=== PATIENT | female | born 1990 | race Caucasian/White ===

== ENCOUNTER 2018-05-28 18:35 | Inpatient (IN) ==
--- NOTE | 2018-05-28 19:42 | Emergency Department Note ---
Disposition Clinical Impression: Jaundice, Hyponatremia, Elevated INR DKA (diabetic ketoacidoses) Qualifiers: Diabetes mellitus type: other specified (including [place]) Diabetes mellitus complication detail: without coma Qualified Code(s): E13.10 - Other specified diabetes mellitus with ketoacidosis without coma Anemia Qualifiers: Anemia type: unspecified type Qualified Code(s): D64.9 - Anemia, unspecified Leukocytosis Qualifiers: Leukocytosis type: unspecified Qualified Code(s): D72.829 - Elevated white blood cell count, unspecified Abdominal pain Qualifiers: Abdominal location: generalized Qualified Code(s): R10.84 - Generalized abdominal pain Disposition: Admitted As Inpatient Condition: Serious Referrals: Michael Haque DO [Primary Care Provider] - General Adult HPI - General Chief complaint: ED General Medical Stated complaint: high glucose, needs transfusion Time Seen by Provider: 05/28/18 18:43 Source: patient Mode of arrival: EMS Limitations: no limitations Nursing Notes Reviewed: Yes Vital Signs Reviewed: Yes - History of Present Illness HPI Narrative: 27-year-old female history of alcoholic cirrhosis with fulminant hepatic failure who presents to the ER due to hyperglycemia and necessity for transfusion. The patient is a poor historian not really sure why she is here. States that she was supposed to receive blood today however they checked her glucose and it was high 2. No history of diabetes. She is unsure why she is anemic and needs blood. Reports abdominal pain which is normal for her. States she had a fever 100.4 although she is not sure when that happened. No other complaints. 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 Scale: 0 Improves with: nothing Worsens with: nothing Associated symptoms: Reports: other (Abdominal pain) Treatments Prior to Arrival: none - Related Data Home Medications Medication Instructions Recorded Confirmed ClonazePAM [Klonopin] 1 mg PO QID PRN 06/21/15 06/21/15 Oxcarbazepine [Trileptal] 300 mg PO DAILY 06/21/15 06/21/15 Quetiapine Fumarate [Seroquel] 25 - 50 mg PO HS PRN 06/21/15 06/21/15 Previous Rx's Medication Instructions Recorded Sodium Bicarbonate 650 mg PO TID PRN #30 tablet 06/23/15 Ondansetron HCl [Zofran] 4 mg PO Q6H PRN #30 tablet 11/21/15 OxyCODONE/APAP 5/325 [Percocet 1 each PO Q6HR PRN #10 tablet 11/21/15 5/325 MG] Sulfamethoxazole/Trimeth DS 1 each PO BID #14 tablet 04/22/16 [Bactrim DS] cephALEXin [Keflex] 500 mg PO QID #21 capsule 04/22/16 Allergies Allergy/AdvReac Type Severity Reaction Status Date / Time peanut Allergy Hives Verified 12/10/16 10:00 acetaminophen [From Tylenol] AdvReac See Verified 12/10/16 10:03 Comments All systems ED: reviewed and negative except as stated. Constitutional: Reports: fever Gastrointestinal: Reports: abdominal pain. Denies: nausea, vomiting, diarrhea Genitourinary: Denies: hematuria Past Medical History - Past Medical History Attestation: Yes The following information was validated with the patient. 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 - Social History Smoking Status: Current every day smoker Smokeless Tobacco Status: No Alcohol use: Reports: heavy, recent Drug use: Reports: IV Drug Use Physical Exam - General Limitations: no limitations General appearance: alert, in no apparent distress - Head Head exam: atraumatic, normocephalic, normal inspection - Eye Eye exam: Present: scleral icterus - ENT ENT exam: normal exam - Neck Neck exam: Present: normal inspection - Chest Chest inspection: Present: normal inspection, symmetric chest wall rise - Respiratory Respiratory exam: Present: normal lung sounds bilaterally - Cardiovascular Cardiovascular exam: Present: regular rate, normal rhythm, normal heart sounds - Abdominal Exam Abdominal exam: Present: soft, tenderness (Mild diffuse), distention. Absent: guarding, rigidity - Extremities Exam Extremities exam: Present: normal inspection, full ROM - Expanded Upper Extremity Exam Shoulder exam: Present: normal inspection, full ROM Arm exam: Present: normal inspection, full ROM Elbow exam: Present: normal inspection, full ROM Forearm/Wrist exam: Present: normal inspection, full ROM Hand exam: Present: normal inspection, full ROM - Expanded Lower Extremity Exam Hip/Pelvis exam: Present: normal inspection, full ROM Upper leg exam: Present: normal inspection, full ROM Knee exam: Present: normal inspection, full ROM Lower leg exam: Present: normal inspection, full ROM Ankle exam: Present: normal inspection, full ROM Foot/toe exam: Present: normal inspection, full ROM - Skin Skin exam: Present: other (Diffuse jaundice) Course Course Narrative: Patient seen and examined. Vital signs reviewed. Plan to check labs for evaluation of anemia as well as DKA. - Reevaluation(s) Reevaluation #1: Discussed results of labs with the patient. She is noted to be anemic at 7.5. She is also hyperglycemic with an anion gap of 17 with a bicarbonate of 17 as well. Plan to start an insulin drip and maintenance fluids at this time. We will also transfuse her 1 unit of red blood cells. I discussed at length with the patient about transfer versus admission. I offered that she be transferred back to [facility] where she was treated previously. I discussed with her that if she were admitted here that there is no coverage capable of intervening should she develop an acute hemorrhage including variceal bleeding given her alcohol abuse. She is DNR CC which I discussed with her at bedside. The patient would like to be admitted here at this time. I discussed palliative care with the patient and will place a consultation as well. Vital Signs Temperature 98.6 F 05/28/18 18:37 Pulse Rate 78 05/28/18 18:37 Respiratory Rate 16 05/28/18 18:37 Blood Pressure 101/57 05/28/18 18:37 O2 Sat by Pulse Oximetry 99 05/28/18 18:37 Temperature 98.6 F 05/28/18 18:37 Pulse Rate 74 05/28/18 21:44 Respiratory Rate 14 05/28/18 21:44 Blood Pressure 93/50 05/28/18 21:44 O2 Sat by Pulse Oximetry 98 05/28/18 21:44 Oxygen Delivery Oxygen Delivery Room Air Medical Decision Making - MDM Narrative Medical decision making narrative: 27-year-old female with fulminant liver failure secondary to alcoholic cirrhosis who presents due to hyperglycemia. This appears to be a new finding for her. Her glucose here is 647 OF her chemistry. She does have an anion gap as well as a bicarbonate of 17. The patient was given normal saline as well as maintenance at 1-1/2 times with 20 of potassium in conjunction with an insulin infusion. She is noted to be diffusely jaundiced here which is her baseline. She has reports of abdominal pain with fevers at her nursing facility recently raising s uspicion for potential spontaneous brachial peritonitis. Given her elevated INR and anemia we are withholding from performing a diagnostic tap and treating empirically with Zosyn and Flagyl. She is also noted be anemic at 7.5 without obvious source of bleeding. Patient ordered 1 unit of packed red blood cells for transfusion. I did offer the patient to be transferred to a tertiary care center given her complicated medical history versus treatment here. The patient elected to be admitted here understanding that she is comfort care. - Lab Data Lab results reviewed: Yes I reviewed the patient's lab results. Result diagrams: 05/28/18 20:40 05/28/18 19:46 Lab Results 05/28/18 05/28/18 05/28/18 Range/Units 19:36 19:36 19:46 WBC (4.3-11.1) K/mcL RBC (3.82-4.97) M/mcL Hgb (11.5-15.4) g/dL Hct (35.3-44.9) % MCV (83.0-100.0) fL MCH (28.0-33.3) pg MCHC (31.6-35.5) g/dL RDW Plt Count (140-400) K/mcL MPV (9.4-12.4) fL Immature Gran % (0-4) % Seg Neutrophils % % Lymphocytes % % Monocytes % % Eosinophils % % Basophils % % Neutrophils # (1.6-8.9) K/mcL Lymphocytes # (0.6-4.6) K/mcL Monocytes # (0.0-1.3) K/mcL Eosinophils # (0.0-0.6) K/mcL Basophils # (0.0-0.2) K/mcL Platelet Estimate (Normal) Polychromasia (Not Present) Hypochromasia (Not Present) Poikilocytosis (Not Present) Macrocytosis (Not Present) Tear Drop Cells (Not Present) Acanthocytes (Spur) (Not Present) PT (9.4-12.1) Seconds INR VBG pH (7.32-7.42) pH Units VBG pCO2 (41-51) mmHg VBG pO2 (25-50) mmHg VBG HCO3 (21-27) mEq/L Sodium 120 L* (136-145) mEq/L Potassium 4.4 (3.5-5.1) mEq/L Chloride 86 L (98-107) mEq/L Carbon Dioxide 17 L (23-29) mEq/L BUN 12 (6-20) mg/dL Creatinine 0.86 (0.60-1.20) mg/dL Est GFR ( Amer) > 60 (> 60) Est GFR (Non-Af Amer) > 60 (> 60) BUN/Creatinine Ratio 14 (6-26) Glucose 647 H* (70-105) mg/dL Calculated Osmolality 280 (280-300) Calcium 9.2 (8.6-10.3) mg/dL Ammonia (16-53) mcmol/L Urine Color Dark Yellow (Yellow) Urine Clarity Cloudy A (Clear) Urine pH 7.0 (5.0-8.0) pH Units Ur Specific [place] 1.023 (1.010-1.025) Urine Protein Trace (Neg-Trace) mg/dL Urine Glucose (UA) >=1000 H (Normal) mg/dL Urine Ketones Negative (Negative) mg/dL Urine Blood Large H (Negative) Urine Nitrite Negative (Negative) Urine Bilirubin Moderate H (Negative) Urine Urobilinogen Normal (Normal) mg/dL Ur Leukocyte Esterase Small H (Negative) Urine Microscopic RBC 50-100 H (0-3) per hpf Urine Microscopic WBC 30-50 H (0-3) per hpf Ur Squamous Epith Cells Many H (None-Few) per lpf Urine Bacteria Many H (None-Few) per hpf Hyaline Casts None Seen (None-Few) per lpf Urine Yeast Few H (None Seen) per hpf Ur Oval Fat Bodies Present A (Not Present) Ur Culture Indicated? NO. A (NO) Urine Test Negative (Negative) Specimen Rejected 05/28/18 05/28/18 05/28/18 Range/Units 19:46 19:46 19:46 WBC (4.3-11.1) K/mcL RBC (3.82-4.97) M/mcL Hgb (11.5-15.4) g/dL Hct (35.3-44.9) % MCV (83.0-100.0) fL MCH (28.0-33.3) pg MCHC (31.6-35.5) g/dL RDW Plt Count (140-400) K/mcL MPV (9.4-12.4) fL Immature Gran % (0-4) % Seg Neutrophils % % Lymphocytes % % Monocytes % % Eosinophils % % Basophils % % Neutrophils # (1.6-8.9) K/mcL Lymphocytes # (0.6-4.6) K/mcL Monocytes # (0.0-1.3) K/mcL Eosinophils # (0.0-0.6) K/mcL Basophils # (0.0-0.2) K/mcL Platelet Estimate (Normal) Polychromasia (Not Present) Hypochromasia (Not Present) Poikilocytosis (Not Present) Macrocytosis (Not Present) Tear Drop Cells (Not Present) Acanthocytes (Spur) (Not Present) PT 18.7 H (9.4-12.1) Seconds INR 1.7 VBG pH (7.32-7.42) pH Units VBG pCO2 (41-51) mmHg VBG pO2 (25-50) mmHg VBG HCO3 (21-27) mEq/L Sodium (136-145) mEq/L Potassium (3.5-5.1) mEq/L Chloride (98-107) mEq/L Carbon Dioxide (23-29) mEq/L BUN (6-20) mg/dL Creatinine (0.60-1.20) mg/dL Est GFR ( Amer) (> 60) Est GFR (Non-Af Amer) (> 60) BUN/Creatinine Ratio (6-26) Glucose (70-105) mg/dL Calculated Osmolality (280-300) Calcium (8.6-10.3) mg/dL Ammonia 56 H (16-53) mcmol/L Urine Color (Yellow) Urine Clarity (Clear) Urine pH (5.0-8.0) pH Units Ur Specific [place] (1.010-1.025) Urine Protein (Neg-Trace) mg/dL Urine Glucose (UA) (Normal) mg/dL Urine Ketones (Negative) mg/dL Urine Blood (Negative) Urine Nitrite (Negative) Urine Bilirubin (Negative) Urine Urobilinogen (Normal) mg/dL Ur Leukocyte Esterase (Negative) Urine Microscopic RBC (0-3) per hpf Urine Microscopic WBC (0-3) per hpf Ur Squamous Epith Cells (None-Few) per lpf Urine Bacteria (None-Few) per hpf Hyaline Casts (None-Few) per lpf Urine Yeast (None Seen) per hpf Ur Oval Fat Bodies (Not Present) Ur Culture Indicated? (NO) Urine Test (Negative) Specimen Rejected Clotted 05/28/18 05/28/18 Range/Units 20:02 20:40 WBC 16.8 H (4.3-11.1) K/mcL RBC 2.02 L (3.82-4.97) M/mcL Hgb 7.5 L (11.5-15.4) g/dL Hct 22.2 L (35.3-44.9) % MCV 109.9 H (83.0-100.0) fL MCH 37.1 H (28.0-33.3) pg MCHC 33.8 (31.6-35.5) g/dL RDW TNP Plt Count 104 L (140-400) K/mcL MPV 10.9 (9.4-12.4) fL Immature Gran % 2.6 (0-4) % Seg Neutrophils % 88.1 % Lymphocytes % 3.9 % Monocytes % 4.9 % Eosinophils % 0.3 % Basophils % 0.2 % Neutrophils # 14.8 H (1.6-8.9) K/mcL Lymphocytes # 0.7 (0.6-4.6) K/mcL Monocytes # 0.8 (0.0-1.3) K/mcL Eosinophils # 0.1 (0.0-0.6) K/mcL Basophils # 0.0 (0.0-0.2) K/mcL Platelet Estimate Decreased L (Normal) Polychromasia 1+ A (Not Present) Hypochromasia Present A (Not Present) Poikilocytosis 2+ A (Not Present) Macrocytosis Present A (Not Present) Tear Drop Cells 1+ A (Not Present) Acanthocytes (Spur) 2+ A (Not Present) PT (9.4-12.1) Seconds INR VBG pH 7.38 (7.32-7.42) pH Units VBG pCO2 32 L (41-51) mmHg VBG pO2 59 H (25-50) mmHg VBG HCO3 19 L (21-27) mEq/L Sodium (136-145) mEq/L Potassium (3.5-5.1) mEq/L Chloride (98-107) mEq/L Carbon Dioxide (23-29) mEq/L BUN (6-20) mg/dL Creatinine (0.60-1.20) mg/dL Est GFR ( Amer) (> 60) Est GFR (Non-Af Amer) (> 60) BUN/Creatinine Ratio (6-26) Glucose (70-105) mg/dL Calculated Osmolality (280-300) Calcium (8.6-10.3) mg/dL Ammonia (16-53) mcmol/L Urine Color (Yellow) Urine Clarity (Clear) Urine pH (5.0-8.0) pH Units Ur Specific [place] (1.010-1.025) Urine Protein (Neg-Trace) mg/dL Urine Glucose (UA) (Normal) mg/dL Urine Ketones (Negative) mg/dL Urine Blood (Negative) Urine Nitrite (Negative) Urine Bilirubin (Negative) Urine Urobilinogen (Normal) mg/dL Ur Leukocyte Esterase (Negative) Urine Microscopic RBC (0-3) per hpf Urine Microscopic WBC (0-3) per hpf Ur Squamous Epith Cells (None-Few) per lpf Urine Bacteria (None-Few) per hpf Hyaline Casts (None-Few) per lpf Urine Yeast (None Seen) per hpf Ur Oval Fat Bodies (Not Present) Ur Culture Indicated? (NO) Urine Test (Negative) Specimen Rejected - Radiology Data Radiology results reviewed: Yes I reviewed the patient's radiology results. Chest X-Ray 05/28/18 21:00 IMPRESSION: Increased lung markings at the bilateral parahilar regions, likely related to bronchitis versus mild pulmonary vascular congestion. D/ / Blayne Muñiz MD / Blayne Muñiz MD Interpreting Provider: Blayne Muñiz MD [facility] - S.B.A.[facility]. Situation: Demographics, MOA Background: Presenting Complaint, Relevant PMH, Meds, & Allergies Assessment: Course and respsone to treatment, Exam Concerns, Patient/Family Expectation, Pertinant Lab Results, Outstanding Labs Recommendation: Barrier(s) to disposition, Recommendation based on pending studies, treatments, or consults [facility].B.A.[facility]. Report Given to: Dr. Odalis Hamlin Repor Time: 22:12
[2018-05-28 19:46] LABS: Bilirubin,Urine Moderate (Negative); Blood,Urine Large (Negative); Clarity,Urine Cloudy (Clear); Color,Urine Dark Yellow (Yellow); Glucose,Urine (UA) >=1000 mg/dL (Normal); Ketones,Urine Negative (Negative); Leukocyte Esterase,Urine Small (Negative); Nitrite,Urine Negative (Negative); Protein,Urine Trace mg/dL (Neg-Trace); Specific Gravity,Urine 1.023 (1.010-1.025); Urobilinogen,Urine Normal (Normal)
[2018-05-28 19:48] LABS: Bacteria,Urine Many per hpf (None-Few); Hyaline Casts,Urine None Seen per lpf (None-Few); RBC,Urine 50-100 per hpf (0-3); Squamous Epithelial Cell,Urine Many per lpf (None-Few); WBC,Urine 30-50 per hpf (0-3)
[2018-05-28 20:02] LABS: Oval Fat Bodies,Urine Present (Not Present); Yeast,Urine Few per hpf (None Seen)
[2018-05-28 20:07] LABS: VBG HCO3 19 mEq/L (21-27); VBG PCO2 32 mmHg (41-51); VBG PH 7.38 pH Units (7.32-7.42); VBG PO2 59 mmHg (25-50)
[2018-05-28 20:15] LABS: INR 1.7; Prothrombin Time 18.7 Seconds (9.4-12.1)
[2018-05-28 20:43] LABS: BUN/Creatinine Ratio 14 (6-26); Blood Urea Nitrogen 12 mg/dL (6-20); Calcium 9.2 mg/dL (8.6-10.3); Carbon Dioxide 17 mEq/L (23-29); Chloride 86 mEq/L (98-107); Glucose 647 mg/dL (70-105); Osmolality,Calculated 280 (280-300); Potassium 4.4 mEq/L (3.5-5.1); Sodium 120 mEq/L (136-145); eGFR For Non-African Americans > 60 (> 60)
[2018-05-28 20:57] LABS: Basophils % 0.2 %; Eosinophils # 0.1 K/mcL (0.0-0.6); Eosinophils % 0.3 %; Hematocrit 22.2 % (35.3-44.9); Immature Granulocytes % 2.6 % (0-4); Lymphocytes # 0.7 K/mcL (0.6-4.6); Lymphocytes % 3.9 %; Mean Corpuscular HGB Conc 33.8 g/dL (31.6-35.5); Mean Corpuscular Hemoglobin 37.1 pg (28.0-33.3); Mean Corpuscular Volume 109.9 fL (83.0-100.0); Mean Platelet Volume 10.9 fL (9.4-12.4); Monocytes # 0.8 K/mcL (0.0-1.3); Monocytes % 4.9 %; Neutrophils # 14.8 K/mcL (1.6-8.9); Platelet Count 104 K/mcL (140-400); Red Blood Count 2.02 M/mcL (3.82-4.97); Segmented Neutrophils % 88.1 %
[2018-05-28 20:58] LABS: Hemoglobin 7.5 g/dL (11.5-15.4)
[2018-05-28] MEDS ORDERED: 0.9 % Sodium Chloride 1,000 ML IVC ONE (21:03)
[2018-05-28 21:24] LABS: Hypochromasia Present (Not Present); Macrocytosis Present (Not Present); Poikilocytosis 2+ (Not Present); Polychromasia 1+ (Not Present); Tear Drop Cells 1+ (Not Present)
[2018-05-28 21:25] LABS: Acanthocytes 2+ (Not Present)
[2018-05-28 21:27] LABS: Platelet Estimate Decreased (Normal)
[2018-05-28] MEDS ORDERED: *HR* Dextrose 50 % in Water (Syg) 50 ML SYRINGE IVP PRN ×2 (21:46→23:08)
[2018-05-28] MEDS ORDERED: MetroNIDAZOLE 500 MG/100 ML 500 MG/100 ML BAG IVPB ONE (21:48)
[2018-05-28] MEDS ORDERED: Piperacillin/Tazobactam 3.375 GM in 0.9 % Sodium Chloride Mini Bag 100 ML IVPB ONE (21:48)
[2018-05-28] MEDS ORDERED: 0.9 % Sodium Chloride w KCl 20 MEQ/1,000 ML MLS IVC SCH (22:00)
[2018-05-28] MEDS ORDERED: Insulin Human Regular 100 UNIT in 0.9 % Sodium Chloride 100 ML IVC SCH ×2 (22:00→23:15)
[2018-05-28 22:58] LABS: Alanine Aminotransferase 70 Units/L (7-52); Albumin 3.4 g/dL (3.5-5.7); Albumin/Globulin Ratio 0.7 (1.1-2.2); Alkaline Phosphatase 176 Units/L (34-104); Aspartate Amino Transferase 62 Units/L (13-39); Bilirubin,Direct 8.8 mg/dL (0.0-0.2); Bilirubin,Indirect 15.3 mg/dL (0.0-1.2); Bilirubin,Total 24.1 mg/dL (0.3-1.0); Globulin 5.2 g/dL (2.4-3.5); Lipase 24 Units/L (11-82); Total Protein 8.6 g/dL (6.4-8.9); Troponin I 0.03 ng/mL (< 0.04)
[2018-05-28] MEDS ORDERED: Insulin Regular, Human 100 UNIT/ML IV PRN (23:08)
[2018-05-28] MEDS ORDERED: D5% in 0.45% NACL 1,000 ML IVC PRN (23:08)
[2018-05-28] MEDS ORDERED: 0.45 % Sodium Chloride w/KCl 20 MEQ/1,000 ML MLS IVC PRN (23:15)
[2018-05-28] MEDS ORDERED: 0.9 % Sodium Chloride w KCl 20 MEQ/1,000 ML MLS IVC PRN (23:15)
[2018-05-28] MEDS ORDERED: 0.9 % Sodium Chloride 1,000 ML IVC PRN (23:15)
[2018-05-28] MEDS ORDERED: Naloxone 0.4 MG/ML INJ IVP PRN (23:57)
[2018-05-29] MEDS ORDERED: *HR* LORazepam 2 MG/ML VIAL IVP ONE ×2 (00:06→08:52)
--- NOTE | 2018-05-29 00:23 | Internal Med History&Physical ---
Date of Encounter: 05/29/18 Time of Encounter: 00:14 Internal Medicine - H&P: HPI Chief complaint: DKA Admitted From: Emergency Dept Plans for Post Hospital Care: Transfer [facility] History of present illness: Ms. Coronado is a 27 year old female with past medical history of chronic alcoholism with end-stage liver disease, cirrhosis, history of IV drug use, asthma, anxiety, chronic pancreatitis, PTSD, tobacco use disorder, RA. Of note, patient was recently in the emergency department on 04/30/18 for symptomatic anemia and found to have hemoglobin of 2.5. At that time, she was transferred to [facility] and had banding for her esophageal varices. She had been seen and evaluated by hepatology is and was told that she is not a candidate for transplant. After being discharged from [facility], she was sent to [facility] for rehabilitation. Patient states that her current plans are to return back home with her parents when she is in better health. She was but states that she has recently been . She has one child who is in the care of her parents currently. Patient arrives to the emergency department today with chief complaint of feeling sick and overall week. She was having trouble ambulating, her stomach has been increasingly distended, she reports productive cough with mucous, vomiting. She does report frequent loose stools due to the laxatives that she takes. She reported slight fevers of 100.4 but denies chills. She states that she has been an rehab in her last alcoholic drink was greater than one month ago. She states that she started drinking at the age of 10. Patient denies history of diabetes. In the emergency department, she was found to have blood glucose at 647 with sodium of 120. Her anionic gap was 17. Her corrected sodium was 129. She was also found to have elevated INR of 1.7, increased bilirubin, increased liver function tests. In the ED, she had received one bolus of fluids, Flagyl, Zosyn, and one unit of blood was ordered. Past Med Surg Social Fam HX - Past Medical History Medical history: asthma, hepatitis, other Additional medical history: DNR CC. rain catheter Psychiatric history: anxiety, bipolar, depression - Past Surgical History Surgical History: orthopedic, other, other Additional surgical history: HIP EFFUSION, LEEP - Social History Smoking Status: Current every day smoker Smokeless Tobacco Status: No Alcohol use: heavy, recent Drug use: IV Drug Use Internal Medicine - H&P: Meds ClonazePAM [Klonopin] 1 mg PO QID PRN 06/21/15 [History] Oxcarbazepine [Trileptal] 300 mg PO DAILY 06/21/15 [History] Quetiapine Fumarate [Seroquel] 25 - 50 mg PO HS PRN 06/21/15 [History] Sodium Bicarbonate 650 mg PO TID PRN #30 tablet 06/23/15 [Rx] Ondansetron HCl [Zofran] 4 mg PO Q6H PRN #30 tablet 11/21/15 [Rx] OxyCODONE/APAP 5/325 [Percocet 5/325 MG] 1 each PO Q6HR PRN #10 tablet 11/21/15 [Rx] Sulfamethoxazole/Trimeth DS [Bactrim DS] 1 each PO BID #14 tablet 04/22/16 [Rx] cephALEXin [Keflex] 500 mg PO QID #21 capsule 04/22/16 [Rx] Allergy/AdvReac Type Severity Reaction Status Date / Time peanut Allergy Hives Verified 12/10/16 10:00 acetaminophen [From Tylenol] AdvReac See Verified 12/10/16 10:03 Comments All Systems PM: A 10-system review of systems was performed and is negative for pertinent findings except as documented above in the HPI. - Constitutional Constitutional: as per HPI - EENT Eyes: as per HPI Ears: as per HPI Nose, mouth and throat: as per HPI - Breasts Breasts: as per HPI - Cardiovascular Cardiovascular ROS IM: as per HPI - Respiratory Respiratory: as per HPI - Gastrointestinal Gastrointestinal: as per HPI - Genitourinary Genitourinary: as per HPI Menstruation: as per HPI - Musculoskeletal Musculoskeletal ROS IM: as per HPI - Integumentary Integumentary IM: as per HPI - Neurological Neurological ROS: as per HPI - Psychiatric Psychiatric: as per HPI - Endocrine Endocrine IM: as per HPI - Hematologic/Lymphatic Hematologic/Lymphatic: as per HPI - Allergic/Immunologic Allergic/Immunologic: as per HPI - Constitutional Vitals: Temp Pulse Resp BP Pulse Ox 98.6 F 80 16 110/59 100 05/28/18 18:37 05/28/18 23:58 05/28/18 23:58 05/28/18 23:58 05/28/18 23:58 General appearance: Present: A&O X 3, no acute distress, underweight, answers questions appropriately Exam: overall ill appearing, severe jaundice with scleral icterus present. - Head Head exam: Present: atraumatic - Eye Eye exam: Present: EOMI, scleral icterus. Absent: nystagmus, periorbital swelling Pupils: Present: PERRL - ENT ENT exam: Present: mucous membranes dry - Respiratory Additional comments: fine rales heard at left lower lobe - Cardiovascular Cardiovascular exam: Present: RRR, +S1, +S2, systolic murmur (+3 systolic mumur heard best at the left upper sternal border) - GI/Abdominal Additional comments: abdomen soft, significantly distended. hypoactive bowel sounds present. - Extremities Exam Additional comments: no cyanosis. peripheral pulses +2. +2 bilateral lower extremity pedal edema present. - Neurological Exam Neurological exam: Present: alert, CN II-XII intact, oriented X3 - Psychiatric Psychiatric exam: Present: depressed - Skin Skin exam: Present: dry, intact Additional comments: severe jaundice Internal Med - H&P Results - Labs CBC & Chem 7: 05/28/18 20:40 05/29/18 00:35 Labs: Short CBC 05/28/18 Range/Units 20:40 WBC 16.8 H (4.3-11.1) K/mcL Hgb 7.5 L (11.5-15.4) g/dL Hct 22.2 L (35.3-44.9) % Plt Count 104 L (140-400) K/mcL Neutrophils # 14.8 H (1.6-8.9) K/mcL BMP 05/28/18 19:46 Sodium 120 L* Potassium 4.4 Chloride 86 L Carbon Dioxide 17 L BUN 12 Creatinine 0.86 Glucose 647 H* Calcium 9.2 Cardiac Enzymes 05/28/18 Range/Units 19:46 Troponin I 0.03 (< 0.04) ng/mL Liver Function 05/28/18 Range/Units 19:46 Total Bilirubin 24.1 H (0.3-1.0) mg/dL Direct Bilirubin 8.8 H (0.0-0.2) mg/dL AST 62 H (13-39) Units/L ALT 70 H (7-52) Units/L Alkaline Phosphatase 176 H (34-104) Units/L Albumin 3.4 L (3.5-5.7) g/dL Urine 05/28/18 Range/Units 19:36 Urine Color Dark Yellow (Yellow) Urine Clarity Cloudy A (Clear) Urine pH 7.0 (5.0-8.0) pH Units Ur Specific [place] 1.023 (1.010-1.025) Urine Protein Trace (Neg-Trace) mg/dL Urine Glucose (UA) >=1000 H (Normal) mg/dL - ABG Interpretation ABG results: 05/28/18 20:02 VBG pH 7.38 VBG pCO2 32 L VBG pO2 59 H VBG HCO3 19 L - Impressions ITS Impressions Chest X-Ray 05/28/18 21:00 IMPRESSION: Increased lung markings at the bilateral parahilar regions, likely related to bronchitis versus mild pulmonary vascular congestion. D/ / Blayne Muñiz MD / Blayne Muñiz MD Interpreting Provider: Blayne Muñiz MD - Assessment and plan (1) DKA (diabetic ketoacidoses) Current Visit: Yes Status: Acute Assessment and plan: No known prior history of diabetes. Set DKA with anionic gap of 17, sugars and 600s etiology likely secondary to failure of pancreatic islet cells with chronic history of alcohol abuse and chronic pancreatitis. Plan: NPO IV fluid bolus insulin drip per DKA protocol Qualifiers: Diabetes mellitus type: other specified (including BLANCA) Diabetes mellitus complication detail: without coma Qualified Code(s): E13.10 - Other specified diabetes mellitus with ketoacidosis without coma (2) Sepsis Current Visit: Yes Status: Acute Assessment and plan: reports fevers of 100.4 at [facility], WBC 16.8. No current source of infection found, possible sources include PNA vs. SBP Lactic acid 5.2-also could be falsely elevated in setting of hepatic failure. CXR showed increase nabor hilar opacities. Plan: B.C. x2, Urine culture pending vancomycin, zosyn day 1 to cover for PNA, possible SBP Qualifiers: Sepsis type: sepsis due to unspecified organism Qualified Code(s): A41.9 - Sepsis, unspecified organism (3) Hyponatremia Current Visit: Yes Status: Acute Assessment and plan: Sodium 120 likely multifactorial etiology in setting of poor oral intake, Pseudohyponatremia in setting of DKA. Corrected sodium is 129 continue to monitor (4) End stage liver disease Current Visit: Yes Status: Acute Assessment and plan: Cirrhosis, end-stage liver disease secondary to chronic alcohol use. Patient states that she has been drinking since the age of 10. She was evaluated by a transplant tool and die maker in [place] and was told that she is not a candidate for a liver transplant. She currently resides in [facility], where she was sent after her stay at [place]. Patient came from [facility] with paper stating that her code status is DNR CC. However, upon conversation with her she states that she wants all life- sustaining measures. Patient would likely benefit from extensive goals of care conversations with palliative care team regarding her end-of-life care. MELD score: 28 (based on corrected sodium): correlates with 19.6% estimated 3 month mortality. Child-bishop class C: correlates with life expectancy of 1-3 years. Plan: appreciate palliative care team recommendations (5) Elevated INR Current Visit: Yes Status: Acute Assessment and plan: INR elevated 1.7, likely secondary to end-stage liver disease. No active signs of bleeding currently. Continue to monitor (6) Anemia Current Visit: Yes Status: Acute Assessment and plan: Hemoglobin currently around baseline. Continue to monitor Qualifiers: Anemia type: unspecified type Qualified Code(s): D64.9 - Anemia, unspecified (7) Anxiety and depression Current Visit: No Status: Chronic Assessment and plan: Resumed home medications once verified (8) Polysubstance abuse Current Visit: No Status: Chronic Assessment and plan: History of IV drug use, alcohol abuse (9) Jaundice Current Visit: Yes Status: Acute Assessment and plan: secondary to cirrhosis and End stage liver disease (10) DVT prophylaxis Current Visit: No Status: Acute Assessment and plan: SQ Lovenox - Time Spent With Patient Total time spent is greater than 50% in coordination of care (as documented) at patient's floor/unit and/or counseling patient:
[2018-05-29] MEDS: 0.9 % Sodium Chloride 1,000 ML IVC SCH ×2 (00:41→07:42)
[2018-05-29] MEDS: OXYCODONE Oral CONC 10 MG/0.5 ML ORAL.SYG SL PRN ×3 (00:50→12:27)
[2018-05-29 00:52] LABS: VBG HCO3 19 mEq/L (21-27); VBG PCO2 34 mmHg (41-51); VBG PH 7.35 pH Units (7.32-7.42); VBG PO2 76 mmHg (25-50)
--- NOTE | 2018-05-29 00:53 | Event Note ---
Date of Encounter: 05/29/18 Time of Encounter: 00:49 Patient was seen and examined. I agree with the H&P as written by the resident physician. Briefly patient is 27-year-old with history of alcoholic end-stage cirrhosis, previous GI bleed requiring banding of esophageal varices at [place], PTSD, chronic pancreas, anxiety, history of IV drug abuse, asthma, who presented with complaints of feeling ill and generalized weakness. She has a productive cough and has been having abdominal pain and vomiting. She has loose stools but also is on laxatives. Reports a fever of 100.4 from her assisted. She has not had a drink for a month or so. In the ED she was noted to have glucose in the 600 with high anion gap. Sodium was 120. LFTs consistent with known end-stage liver disease. Also had leukocytosis 16.8. Hemoglobin was 7.5 and she was ordered 1 unit transfusion. Denies any active bleeding. Patient had a chest x-ray in the ED which showed increased lung markings at the bilateral perihilar regions. The patient was given Flagyl and Zosyn in the ED. The patient is a DNR CC apparently but she tells me that "her dad wanted her to be comfortable" and when I asked her what she wanted she stated that she wants everything done. She was alert and oriented during that time. Alert to self and place and was able to state the month and year but not exact date. She was offered transfer to [place] by the ED and has refused and wanted to be admitted here. GEN: NAD, jaundiced CVS: RRR. S1, S2, systolic murmur heard RESP: CTAB ABD: Distended with generalized tenderness but no rebound, +BS EXT: No edema. 2+ DP. No rashes NEURO: Nonfocal We have made the patient full code for now until she is seen by palliative to sort out her CODE STATUS and goals of care. We will treat the patient for DKA per protocol Labs every 4 hours Check A1c Patient possibly has HCAP vs SBP and we have placed on vancomycin and Zosyn which should cover both Ideally she should undergo diagnostic versus therapeutic paracentesis as she is very distended (May need to be given FFPs if that is to be done). This can be deferred until she is evaluated by palliative and DKA is resolved Patient has a murmur and we will order echocardiogram rule out endocarditis given her history. Lactic acid is elevated and unlikely to resolve given the degree of the liver failure. No signs of active bleeding but she was transfused a unit of PRBCs in the ED and will check a CBC in the morning
[2018-05-29 01:10] LABS: BUN/Creatinine Ratio 18 (6-26); Blood Urea Nitrogen 13 mg/dL (6-20); Carbon Dioxide 18 mEq/L (23-29); Chloride 94 mEq/L (98-107); Glucose 490 mg/dL (70-105); Osmolality,Calculated 282 (280-300); Potassium 3.5 mEq/L (3.5-5.1); Sodium 125 mEq/L (136-145); eGFR For Non-African Americans > 60 (> 60)
[2018-05-29] MEDS: Nicotine 21 MG PATCH.TD24 TD SCH ×2 (01:44→08:31)
[2018-05-29 02:33] LABS: Hematocrit 21.2 % (35.3-44.9); Hemoglobin 7.1 g/dL (11.5-15.4); Mean Corpuscular HGB Conc 33.5 g/dL (31.6-35.5); Mean Corpuscular Hemoglobin 36.8 pg (28.0-33.3); Mean Corpuscular Volume 109.8 fL (83.0-100.0); Mean Platelet Volume 10.6 fL (9.4-12.4); Red Blood Count 1.93 M/mcL (3.82-4.97)
[2018-05-29 02:33] LABS: VBG HCO3 19 mEq/L (21-27); VBG PCO2 34 mmHg (41-51); VBG PH 7.35 pH Units (7.32-7.42); VBG PO2 123 mmHg (25-50)
[2018-05-29 02:34] LABS: Platelet Count 91 K/mcL (140-400)
[2018-05-29] MEDS ORDERED: Potassium Phosphate 44 MEQ in 0.9 % Sodium Chloride 250 ML IVPB PRN (02:39)
[2018-05-29 02:51] LABS: BUN/Creatinine Ratio 18 (6-26); Blood Urea Nitrogen 12 mg/dL (6-20); Calcium 7.8 mg/dL (8.6-10.3); Carbon Dioxide 18 mEq/L (23-29); Chloride 98 mEq/L (98-107); Glucose 335 mg/dL (70-105); Osmolality,Calculated 277 (280-300); Potassium 3.8 mEq/L (3.5-5.1); Sodium 127 mEq/L (136-145); eGFR For Non-African Americans > 60 (> 60)
[2018-05-29 03:10] LABS: VBG Ionized Calcium 1.16 mmol/L (1.15-1.35)
[2018-05-29] MEDS ORDERED: 0.9 % Sodium Chloride 250 ML ONE (03:43)
[2018-05-29] MEDS ORDERED: *HR* Enoxaparin 40 MG/0.4 ML SYRINGE SQ SCH (06:00)
[2018-05-29] MEDS: D5% in 0.45% NACL w KCl 20 MEQ/1,000 ML MLS IVC PRN ×2 (06:30→10:46)
[2018-05-29 07:57] LABS: VBG HCO3 19 mEq/L (21-27); VBG PCO2 35 mmHg (41-51); VBG PH 7.34 pH Units (7.32-7.42); VBG PO2 152 mmHg (25-50)
[2018-05-29 08:05] LABS: BUN/Creatinine Ratio 22 (6-26); Blood Urea Nitrogen 10 mg/dL (6-20); Calcium 7.5 mg/dL (8.6-10.3); Carbon Dioxide 18 mEq/L (23-29); Chloride 105 mEq/L (98-107); Glucose 138 mg/dL (70-105); Osmolality,Calculated 271 (280-300); Potassium 4.2 mEq/L (3.5-5.1); Sodium 130 mEq/L (136-145); eGFR For Non-African Americans > 60 (> 60)
[2018-05-29 08:55] LABS: Estimated Average Glucose 146 mg/dl; Hemoglobin A1C 6.7 %
[2018-05-29] MEDS ORDERED: Piperacillin/Tazobactam 3.375 GM in 0.9 % Sodium Chloride Mini Bag 100 ML IVPB SCH (10:00)
--- NOTE | 2018-05-29 10:19 | Internal Med Progress Note ---
Hospitalist Progress Note - Encounter Date of Encounter: 05/29/18 Time of Encounter: 08:12 - Subjective Interval History: Patient seen and examined this morning. C/o abdominal pain. Sleeping. Easily arousable. No fever chills N/V/D. No bloody BM. Denies sob or chest pain. - Exam Vitals: Temp Pulse Resp BP Pulse Ox 98.4 F 86 16 106/62 99 05/29/18 07:00 05/29/18 09:15 05/29/18 07:00 05/29/18 07:00 05/29/18 07:00 Exam: General: In no acute distress. Conversant. generalized edema. Icteric skin and sclera Respiratory exam: Decreased air entry at base. no accessory muscle use, rales, rhonchi, wheezes Cardiovascular exam: RRR, +S1, +S2. no gallop, rubs. Ejection systolic murmur. GI/Abdominal exam: Generalized tenderness, Distended abdomen, Fluid thrill present, bowel sound present, no peritoneal signs. Extremities exam: full ROM, 1+ pedal edema, warm, pulses palpable in b/l lower extremities. no calf tenderness Neurological exam: CN II-XII intact, AO X3, no focal deficits. Somewhat drowsy. Skin exam: Icteric, spider angioma present - Summary of Assessment and Plan Summary of Assessment and Plan: DKA - No known prior history of diabetes. - possibly from pancreatitis. HbA1c of 6.7 - c/w insulin drip per DKA protocol. bicarb still low. Sepsis - Low grade 100.4 at intermediate, WBC 16.8. - Hasa abdominal pain . ? SBP - Lactic acid 5.2, possibly related to hepatic failure. - CXR with possible bronchitis - c/w Vancomycin and zosyn End stage liver disease - Cirrhosis, end-stage liver disease secondary to chronic alcohol use. Last drink about 1 month ago - Previously evaluated by a transplant inspector precision in [place] and was told that she is not a candidate for a liver transplant. - INR 1.7 with elevated bilirubin. MELD score of 28. High 3 month mortality. - [place] paper stating that her code status is DNR CC. However currently full code. Says want to talk to father about Life support measure - Palliative care consulted. Anemia - 7.5 on admission. - s/p 1 PRBC. Inappropriate response - Unknow when had EGD - GI consulted Anxiety and depression - Resumed home medications once verified DVT prophylaxis - dc Lovenox. EPCD - Time Spent with Patient Total time spent is greater than 50% in coordination of care (as documented) at patient's floor/unit and/or counseling patient: Internal Medicine: Result - Labs CBC & Chem 7: 05/29/18 02:19 05/29/18 07:15 Labs: Short CBC 05/28/18 05/29/18 Range/Units 20:40 02:19 WBC 16.8 H 16.3 H (4.3-11.1) K/mcL Hgb 7.5 L 7.1 L (11.5-15.4) g/dL Hct 22.2 L 21.2 L (35.3-44.9) % Plt Count 104 L 91 L (140-400) K/mcL Neutrophils # 14.8 H (1.6-8.9) K/mcL BMP 05/28/18 05/29/18 05/29/18 19:46 00:35 02:19 Sodium 120 L* 125 L 127 L Potassium 4.4 3.5 3.8 Chloride 86 L 94 L 98 Carbon Dioxide 17 L 18 L 18 L BUN 12 13 12 Creatinine 0.86 0.74 0.65 Glucose 647 H* 490 H 335 H Calcium 9.2 8.0 L 7.8 L 05/29/18 07:15 Sodium 130 L Potassium 4.2 Chloride 105 Carbon Dioxide 18 L BUN 10 Creatinine 0.46 L Glucose 138 H Calcium 7.5 L Cardiac Enzymes 05/28/18 Range/Units 19:46 Troponin I 0.03 (< 0.04) ng/mL Liver Function 05/28/18 Range/Units 19:46 Total Bilirubin 24.1 H (0.3-1.0) mg/dL Direct Bilirubin 8.8 H (0.0-0.2) mg/dL AST 62 H (13-39) Units/L ALT 70 H (7-52) Units/L Alkaline Phosphatase 176 H (34-104) Units/L Albumin 3.4 L (3.5-5.7) g/dL Urine 05/28/18 Range/Units 19:36 Urine Color Dark Yellow (Yellow) Urine Clarity Cloudy A (Clear) Urine pH 7.0 (5.0-8.0) pH Units Ur Specific [place] 1.023 (1.010-1.025) Urine Protein Trace (Neg-Trace) mg/dL Urine Glucose (UA) >=1000 H (Normal) mg/dL - ABG Interpretation ABG results: PT/INR, D-dimer PT 18.7 Seconds (9.4-12.1) H 05/28/18 19:46 - Impressions Impressions Chest X-Ray 05/28/18 21:00 IMPRESSION: Increased lung markings at the bilateral parahilar regions, likely related to bronchitis versus mild pulmonary vascular congestion. D/ / Blayne Muñiz MD / Blayne Muñiz MD Interpreting Provider: Blayne Muñiz MD Consult Discharge Plan - Plan Referrals: Ej Emmanuel DO [Resident] - 06/05/18 10:30 am
--- NOTE | 2018-05-29 10:55 | Palliative - Consult Note ---
<Jose,Emilia - Last Filed: 05/29/18 15:09> Date of Encounter: 05/29/18 Time of Encounter: 10:15 - Assessment and Plan (1) Goals of care, counseling/discussion Current Visit: Yes Status: Acute Assessment and plan: Had a discussion of goals of care with Ms. Coronado. During the discussion Dr. Jerome was present as well as her father. She noted she does not want any further treatment. She would like to continue pain control. We had a discussion with her about transferring to a tertiary facility given she has end stage liver failure and is anemic, not responding to blood transfusion. She refused transfer. She noted the last time she was at [place] she was not happy with her care and does not want the same care. We discussed transfer to [facility] and she also declined that stating that she would like to just be kept comfortable by getting her pain medication, rehabilitation and food. She seems to have poor insight about the severity of her prognosis. She referred to her father to make her decisions and he did not want her to suffer any longer. She also asked that her code status be changed from full code to DNR. Her father was in agreement. She has agreed to be transferred to [facility] for further treatment options. After several discussions she is finally understanding of her prognosis and wants to seek out other options that might be available to her. (2) DKA (diabetic ketoacidoses) Current Visit: Yes Status: Acute Assessment and plan: Glucose was 647 at presentation with anion gap of 17. Her most recent A1c this morning is 6.7. Currently on insulin drip to close the anion gap and treat hyperglycemia. Being managed by primary team. Qualifiers: Diabetes mellitus type: other specified (including BLANCA) Diabetes mellitus complication detail: without coma Qualified Code(s): E13.10 - Other specified diabetes mellitus with ketoacidosis without coma (3) End stage liver disease Current Visit: Yes Status: Acute Assessment and plan: Bilirubin is 24 and history of esophageal varices. Her current LFTs are consistent with end stage liver disease. She was admitted at [facility] in the past but was not a candidate for liver transplant because of chronic alcohol use. At this time she does not want any further interventions and would like to return to [place]. (4) Abdominal pain Current Visit: Yes Status: Acute Assessment and plan: Diffuse abdominal pain. History of end stage liver disease. Her abdomen is very distended. Unknown why she has severe pain, likely from chronic pain tolerance due to high dose of pain medications she received at her nursing facility. She underwent paracentesis by IR and there was no fluid that could be tapped. Started long acting oxycodone 30 mg Q12 and 5 mg PRN Q4HR short acting for break through pain. Qualifiers: Abdominal location: generalized Qualified Code(s): R10.84 - Generalized abdominal pain (5) Anemia Current Visit: Yes Status: Acute Assessment and plan: Presented with hemoglobin of 7.5, received 1 unit of blood and hemoglobin is 7.1 today. No source of active bleeding but does have history end stage liver disease. Qualifiers: Anemia type: unspecified type Qualified Code(s): D64.9 - Anemia, unspecified (6) Sepsis Current Visit: Yes Status: Acute Assessment and plan: Met sepsis criteria at presentation. Presented with leukocytosis and temperature of 100.4. Possible source could be pneumonia given she was vomiting prior to presentation and increased perihilar opacities vs. SBP due to severe abdominal pain and leukocytosis. No fluid collected during paracentesis. Currently on vancomycin and zosyn, being managed by primary team. Qualifiers: Sepsis type: sepsis due to unspecified organism Qualified Code(s): A41.9 - Sepsis, unspecified organism Palliative-CN HPI - Data of Consult Requesting Physician: Liu Jacobo MD Primary Care Provider: Michael Haque DO - Consult Narrative History of present illness: Ms. Coronado is a 27 year old female who was presented to the hospital from [facility] due to feeling ill and having episodes of nausea and vomiting. She has history of alcoholic end-stage cirrhosis, previous GI bleed requiring banding of esophageal varices in [place], chronic pancreatitis, IV drug abuse, asthma and anxiety. At presentation she complained of abdominal pain and generalized weakness. She also complained of loose bowel movements but noted she is on laxatives. In the ED her glucose was noted to be 647 with anion gap of 17. Her LFTs were consistent with end stage liver disease with total bilirubin of 24 and INR of 1.7. She was also noted to be anemic and received 1 unit of blood. Her WBC was 16.8. Her chest xray showed bilateral perihilar regions. She is currently on zosyn and vancomycin for sepsis. She is being treated for DKA. She was offered transfer to [facility] at presentation and she refused. This morning she is resting in bed and is very tired. She is asking for food as she is hungry. We returned to see her in the afternoon. She was nor alert. She was taking but only asking for food and pain medications. She had no other complaints. She denies any pain to her back. She denies nausea or emesis, fever, chills, shortness of breath of cardiac chest pain. CC: Liu Jacobo MD - Time Spent with Patient Time: Total time spent is greater than 50% in coordination of care (as documented) at patient's floor/unit and/or counseling patient: Past Med Surg Social Fam HX - Past Medical History Medical history: asthma, hepatitis, other Additional medical history: DNR CC. rain catheter Psychiatric history: anxiety, bipolar, depression - Past Surgical History Surgical History: orthopedic, other, other Additional surgical history: HIP EFFUSION, LEEP - Social History Smoking Status: Current every day smoker Smokeless Tobacco Status: No Alcohol use: heavy, recent Drug use: IV Drug Use Medications and Allergies Albuterol Sulfate [Albuterol Inhaler] 2 puff IH Q6HR PRN 05/29/18 [History] Amino Acids/Protein Hydrolys [Pro-Stat Awc Liquid Packet] 30 ml PO DAILY 05/29/18 [History] Budesonide/Formoterol 160/4.5 [Symbicort 160/4.5] 2 puff IH BIDR 05/29/18 [History] Citalopram Hydrobromide [Citalopram HBr] 10 mg PO DAILY 05/29/18 [History] Fluconazole [Diflucan] 150 mg PO DAILY 05/29/18 [History] Fluticasone Propionate [Flovent Hfa] 1 puff IH DAILY 05/29/18 [History] Folic Acid 1 mg PO DAILY 05/29/18 [History] Furosemide [Lasix] 20 mg PO DAILY 05/29/18 [History] Insulin Human Regular [HumuLIN R] 2 - 6 unit SQ WMHS 05/29/18 [History] LORazepam [Ativan] 0.5 mg PO Q4HR PRN 05/29/18 [History] Lactulose 20 gm PO BID PRN 05/29/18 [History] Nystatin [Nystatin Suspension] 500,000 units PO QID PRN 05/29/18 [History] Pantoprazole Sodium [Protonix] 40 mg PO BID 05/29/18 [History] Promethazine [Phenergan] 25 mg PO Q6HR PRN 05/29/18 [History] Spironolactone 50 mg PO DAILY 05/29/18 [History] Sulfamethoxazole/Trimeth DS [Bactrim DS] 1 tab PO BID 05/29/18 [History] predniSONE [Prednisone Intensol] 13.3 ml PO DAILY 05/29/18 [History] Allergy/AdvReac Type Severity Reaction Status Date / Time peanut Allergy Hives Verified 12/10/16 10:00 acetaminophen [From Tylenol] AdvReac See Verified 12/10/16 10:03 Comments - Constitutional Constitutional ROS PAL: no chills, no fever(s) - Cardiovascular Cardiovascular ROS: no chest pain, no chest pain at rest, no diaphoresis - Respiratory Respiratory: no cough, no dyspnea - Gastrointestinal Gastrointestinal: abdominal pain (diffuse), loose stools, no nausea, no vomiting - Genitourinary Palliative ROS female: no dysuria - Neurological Neurological ROS: no headache(s), no weakness Palliative Care-Exam - Constitutional Vitals: Temp Pulse Resp BP Pulse Ox 98.4 F 86 16 106/62 99 05/29/18 07:00 05/29/18 09:15 05/29/18 07:00 05/29/18 07:00 05/29/18 07:00 General appearance: Present: average body habitus - Head Head Exam: Present: atraumatic, normocephalic - Eye Eye exam: Present: EOMI, normal appearance, scleral icterus - ENT ENT exam: Present: mucous membranes moist - Neck Neck exam: Present: normal inspection - Respiratory Respiratory exam: Present: CTAB. Absent: rhonchi, wheezes - GI/Abdominal Exam GI/Abdominal exam: Present: distended, normal bowel sounds, tenderness (diffuse tenderness). Absent: firm, guarding - Extremities Exam Extremities exam: Present: pedal edema (+1 pitting edema). Absent: tenderness - Neurological Exam Neurological exam: Present: alert, oriented X3 - Skin Skin exam: Present: dry, intact Additional comments: jaundice Internal Medicine - CN: Reslt - Labs CBC & Chem 7: 05/29/18 11:27 05/29/18 11:27 Labs: Short CBC 05/28/18 05/29/18 Range/Units 20:40 02:19 WBC 16.8 H 16.3 H (4.3-11.1) K/mcL Hgb 7.5 L 7.1 L (11.5-15.4) g/dL Hct 22.2 L 21.2 L (35.3-44.9) % Plt Count 104 L 91 L (140-400) K/mcL Neutrophils # 14.8 H (1.6-8.9) K/mcL BMP 05/28/18 05/29/18 05/29/18 19:46 00:35 02:19 Sodium 120 L* 125 L 127 L Potassium 4.4 3.5 3.8 Chloride 86 L 94 L 98 Carbon Dioxide 17 L 18 L 18 L BUN 12 13 12 Creatinine 0.86 0.74 0.65 Glucose 647 H* 490 H 335 H Calcium 9.2 8.0 L 7.8 L 05/29/18 07:15 Sodium 130 L Potassium 4.2 Chloride 105 Carbon Dioxide 18 L BUN 10 Creatinine 0.46 L Glucose 138 H Calcium 7.5 L Cardiac Enzymes 05/28/18 Range/Units 19:46 Troponin I 0.03 (< 0.04) ng/mL Liver Function 05/28/18 Range/Units 19:46 Total Bilirubin 24.1 H (0.3-1.0) mg/dL Direct Bilirubin 8.8 H (0.0-0.2) mg/dL AST 62 H (13-39) Units/L ALT 70 H (7-52) Units/L Alkaline Phosphatase 176 H (34-104) Units/L Albumin 3.4 L (3.5-5.7) g/dL Urine 05/28/18 Range/Units 19:36 Urine Color Dark Yellow (Yellow) Urine Clarity Cloudy A (Clear) Urine pH 7.0 (5.0-8.0) pH Units Ur Specific [place] 1.023 (1.010-1.025) Urine Protein Trace (Neg-Trace) mg/dL Urine Glucose (UA) >=1000 H (Normal) mg/dL - ABG Interpretation ABG results: PT/INR, D-dimer PT 18.7 Seconds (9.4-12.1) H 05/28/18 19:46 - Impressions Impressions Chest X-Ray 05/28/18 21:00 IMPRESSION: Increased lung markings at the bilateral parahilar regions, likely related to bronchitis versus mild pulmonary vascular congestion. D/ / Blayne Muñiz MD / Blayne Muñiz MD Interpreting Provider: Blayne Muñiz MD Consult Discharge Plan - Plan Referrals: Ej Emmanuel DO [Resident] - (patient is going to [facility] no PCP appointment needed) Palliative Quality Palliative Quality: Screen for Code Status: Yes, Screen for Goals of Care: Yes, Screen for Pain: Yes, If Pain Regimen Started, Initiate Bowel Regimen: Yes, Screen for Nausea/Vomitting: Yes Code Status: 05/28/18 23:57 Resuscitation Status: Active [RES] Routine Comment: Resuscitation Status: DNR-Comfort Care 05/29/18 01:49 Resuscitation Status: Active [RES] Stat Comment: Resuscitation Status: Full Code <Leslee Jerome - Last Filed: 05/29/18 17:16> Date of Encounter: 05/29/18 Palliative-CN HPI - Data of Consult Requesting Physician: Liu Jacobo MD Primary Care Provider: Michael Haque DO - Consult Narrative History of present illness: Ms. Coronado is a 27 year old female CC: Liu Jacobo MD - Time Spent with Patient Time: Total time spent is greater than 50% in coordination of care (as documented) at patient's floor/unit and/or counseling patient: Palliative Care-Exam - Constitutional Vitals: Temp Pulse Resp BP Pulse Ox 98.5 F 97 18 103/62 100 05/29/18 15:33 05/29/18 15:33 05/29/18 15:33 05/29/18 15:33 05/29/18 15:33 Internal Medicine - CN: Reslt - Labs CBC & Chem 7: 05/29/18 11:27 05/29/18 11:27 Labs: Short CBC 05/28/18 05/29/18 05/29/18 Range/Units 20:40 02:19 11:27 WBC 16.8 H 16.3 H 16.7 H (4.3-11.1) K/mcL Hgb 7.5 L 7.1 L 7.9 L (11.5-15.4) g/dL Hct 22.2 L 21.2 L 22.7 L (35.3-44.9) % Plt Count 104 L 91 L 77 L (140-400) K/mcL Neutrophils # 14.8 H 12.8 H (1.6-8.9) K/mcL BMP 05/28/18 05/29/18 05/29/18 19:46 00:35 02:19 Sodium 120 L* 125 L 127 L Potassium 4.4 3.5 3.8 Chloride 86 L 94 L 98 Carbon Dioxide 17 L 18 L 18 L BUN 12 13 12 Creatinine 0.86 0.74 0.65 Glucose 647 H* 490 H 335 H Calcium 9.2 8.0 L 7.8 L 05/29/18 05/29/18 07:15 11:27 Sodium 130 L 131 L Potassium 4.2 4.1 Chloride 105 105 Carbon Dioxide 18 L 19 L BUN 10 9 Creatinine 0.46 L 0.49 L Glucose 138 H 131 H Calcium 7.5 L 7.7 L Cardiac Enzymes 05/28/18 Range/Units 19:46 Troponin I 0.03 (< 0.04) ng/mL Liver Function 05/28/18 Range/Units 19:46 Total Bilirubin 24.1 H (0.3-1.0) mg/dL Direct Bilirubin 8.8 H (0.0-0.2) mg/dL AST 62 H (13-39) Units/L ALT 70 H (7-52) Units/L Alkaline Phosphatase 176 H (34-104) Units/L Albumin 3.4 L (3.5-5.7) g/dL Urine 05/28/18 Range/Units 19:36 Urine Color Dark Yellow (Yellow) Urine Clarity Cloudy A (Clear) Urine pH 7.0 (5.0-8.0) pH Units Ur Specific [place] 1.023 (1.010-1.025) Urine Protein Trace (Neg-Trace) mg/dL Urine Glucose (UA) >=1000 H (Normal) mg/dL - ABG Interpretation ABG results: PT/INR, D-dimer PT 20.0 Seconds (9.4-12.1) H 05/29/18 11:27 - Impressions Impressions Chest X-Ray 05/28/18 21:00 IMPRESSION: Increased lung markings at the bilateral parahilar regions, likely related to bronchitis versus mild pulmonary vascular congestion. D/ / Blayne Muñiz MD / Blayne Muñiz MD Interpreting Provider: Blayne Muñiz MD Abdomen/Pelvis/Transvag US 05/29/18 10:49 IMPRESSION: No significant ascites identified to safely perform paracentesis D/ / Mikal Sarkar MD / Mikal Sarkar MD Interpreting Provider: Mikal Sarkar MD Abdomen/Pelvis CT 05/29/18 13:19 IMPRESSION: 1. Interval development of bilateral small pleural effusions, ascites and body wall edema. 2. The slight improvement in hepatomegaly. Hepatic steatosis on prior has resolved. Stable splenomegaly. 3. Absence of IV contrast limits evaluation of the solid organs. Pancreatic duct appears dilated representing a change from prior. Consider MRI MRCP for further evaluation. D/ / Mike James MD / Mike James MD Interpreting Provider: Mike James MD - Attending Attestation I performed a history and physical examination of the patient and discussed his management with the resident. I reviewed the residents note and agree with the documented findings and plan of care, except as follow: Multiple goals of care discussions with pt and family today. 10:30 palliative care met with pt, at the time, pt complaining of abdominal pain and feeling hungry, unable to engage in most conversation. Discussed with Dr. Wright about attempting diagnostic and therapeutic paracenthesis. Called pt's father to discuss GOC, code status and plan of care. Father decided to come to the hospital for further discussion with patient. 13:30 Palliative care team (myself and Dr. Garcia) met with pt, pt's father, and mother. Patient was sent to IR for paracenthesis, no fluid was found for drainage. Discussed current medical conditions, trajectory of illness, overall poor prognosis and goals of care. Patient demonstrated poor insight into her medical condition, consistently stating that she just wanted to be kept comfortable and given pain medication and food, refusing transfer to tertiary center and further work up. However, she was hopeful to recover strength, get better and return home. Discussed code status with father, he is understanding that CPR will not be indicated for pt and will likely result in prolonging suffering and dying process. He decided, with the pt's agreement for DNRCCA and DNI. 1500, Met again with pt and family, along with primary hospitalist Dr. Wright to define GOC. Expained the options of continuing aggressive care at a tertiary care center ([facility]) or returning to [place] on hospice. Pt and family decided they were not ready for hospice yet. Decision was made with all parties agreement for transfer to [facility]. Patient's parent would like pt to return to [facility] when stable or in the case she was dying, so they can see her. Emotional support provided. Pain management: Pt is on Oxycodone 10mg q1hr a the senior care, as well as Ativan q4hrs. Pt has been complaining of constant pain since admission and demanding the same frequency of pain medication. Discussed with pt, will start Oxycodone ER 30 mg q12hrs, with oxycodone 5 mg q4hrs prn for breakthrough pain. Pain medication needs to be better defined in the next few days. Palliative Quality Code Status: 05/28/18 23:57 Resuscitation Status: Active [RES] Routine Comment: Resuscitation Status: DNR-Comfort Care 05/29/18 01:49 Resuscitation Status: Active [RES] Stat Comment: Resuscitation Status: Full Code 05/29/18 16:04 CODE [Resuscitation Status: Active] [RES] Routine Comment: Resuscitation Status: [id number] Palliative Scale - Palliative Performance Scale How ambulatory is this patient?: Mainly sit / lie What is patient's level of activity and evidence of disease?: Unable to do any work, Extensive disease How much self-care assistance does patient require?: Considerable assistance required How much oral intake does the patient have?: Normal What is this patient's level of consciousness?: Full or confusion Palliative Performance Score: 50 %
--- NOTE | 2018-05-29 11:20 | Gastroenterology Consult Note ---
Date of Encounter: 05/29/18 Time of Encounter: 10:45 - Assessment and plan (1) End stage liver disease Current Visit: Yes Status: Acute Assessment and plan: 27 year old female with end-stage liver disease. She has been evaluated at [facility] and deemed not a candidate for liver transplant. Her DF is very high 54. She had Hgb 2.5 last month and had varices banding at [facility]. Hgb is 7.1 currently, no active bleeding. She has requested to be Full code. Discussed with Dr Lee and he advised transfer to [facility] as there will not be GI promotions officer this weekend and the pt is high risk for decompensation. Her overall prognosis is poor. - Time Spent With Patient Total time spent is greater than 50% in coordination of care (as documented) at patient's floor/unit and/or counseling patient: GI History of Present Illness - Data of Consult Patient: new to practice Consult date: 05/29/18 Requesting Physician: Liu Jacobo MD - Consult Narrative Reason for consult: alcoholic cirrhosis, end stage liver disease History of present illness: Ms. Coronado is a 27 year old female with past medical history of chronic al coholism with end-stage liver disease, cirrhosis, history of IV drug use, asthma, anxiety, chronic pancreatitis, PTSD, tobacco use disorder, RA, and is currently a resident of a assisted. She was seen in the emergency department on 04/30/18 for symptomatic anemia and found to have hemoglobin of 2.5, was transferred to [facility] and had banding for her esophageal varices. She was there and evaluated by hepatology. She was told that she is not a candidate for transplant. After being discharged from [facility], she was sent to [facility] for rehabilitation. She presented with chief complaint of feeling sick and overall week. She was having trouble ambulating, her stomach has been increasingly distended, she reports productive cough with mucous, vomiting. She does report frequent loose stools due to the laxatives that she takes. She reported slight fevers of 100.4 but denies chills. She states that she has been an rehab in her last alcoholic drink was greater than one month ago. She states that she started drinking at the age of 10. She denies history of diabetes, but was found to have blood glucose at 647 with sodium of 120. Her anionic gap was 17. Her corrected sodium was 129. She was also found to have elevated INR of 1.7, increased bilirubin, increased liver function tests. Hgb was 7.5 she was transfused one unit PRBCs and Hgb is 7.1 today. On exam she is very lethargic, jaundice, and abdomen is distended and very tender. 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 rain catheter Psychiatric history: anxiety, bipolar, depression - Past Surgical History Surgical History: orthopedic, other, other Additional surgical history: HIP EFFUSION, LEEP - Social History Smoking Status: Current every day smoker Smokeless Tobacco Status: No Alcohol use: heavy, recent Drug use: IV Drug Use ROS unobtainable: due to mental status - Constitutional Vitals: Temp Pulse Resp BP Pulse Ox 98.4 F 86 16 106/62 99 05/29/18 07:00 05/29/18 09:15 05/29/18 07:00 05/29/18 07:00 05/29/18 07:00 Exam: CONSTITUTIONAL:lethargic, shakes her head yes or no but does not open her eyes or make ey contact.HEAD:normocephalic.EYES:jaundice.NECK:no obvious swelling.HEART:regular rate and rhythm, loud murmur.LUNGS:bilateral poor air entry.ABDOMEN: distended, firm very tender, RECTAL EXAM:Deferred.E XTREMITIES:no clubbing, cyanosis, 2+ BLE edema.SKIN:jaundice noted.NEUROLOGIC:no obvious focal defect. Results - Labs CBC & Chem 7: 05/29/18 02:19 05/29/18 07:15 Labs: Last Result Calcium 7.5 mg/dL (8.6-10.3) L 05/29/18 07:15 Troponin I 0.03 ng/mL (< 0.04) 05/28/18 19:46 Entire Visit Hgb 7.1 g/dL (11.5-15.4) L 05/29/18 02:19 Hct 21.2 % (35.3-44.9) L 05/29/18 02:19 PT 18.7 Seconds (9.4-12.1) H 05/28/18 19:46 Total Bilirubin 24.1 mg/dL (0.3-1.0) H 05/28/18 19:46 AST 62 Units/L (13-39) H 05/28/18 19:46 ALT 70 Units/L (7-52) H 05/28/18 19:46 Ammonia 56 mcmol/L (16-53) H 05/28/18 19:46 Lipase 24 Units/L (11-82) 05/28/18 19:46 - ABG ABG results: PT/INR, D-dimer PT 18.7 Seconds (9.4-12.1) H 05/28/18 19:46 - Impressions Impressions Chest X-Ray 05/28/18 21:00 IMPRESSION: Increased lung markings at the bilateral parahilar regions, likely related to bronchitis versus mild pulmonary vascular congestion. D/ / Blayne Muñiz MD / Blayne Muñiz MD Interpreting Provider: Blayne Muñiz MD Consult Discharge Plan - Plan Referrals: Ej Emmanuel DO [Resident] - 06/05/18 10:30 am
[2018-05-29 11:44] LABS: Eosinophils % 2.3 %
[2018-05-29 11:46] LABS: Basophils % 0.1 %; Eosinophils # 0.4 K/mcL (0.0-0.6); Hematocrit 22.7 % (35.3-44.9); Hemoglobin 7.9 g/dL (11.5-15.4); Immature Granulocytes % 2.5 % (0-4); Immature Platelets 4.2 % (1.1-6.1); Lymphocytes # 2.1 K/mcL (0.6-4.6); Lymphocytes % 12.8 %; Mean Corpuscular HGB Conc 34.8 g/dL (31.6-35.5); Mean Corpuscular Hemoglobin 36.6 pg (28.0-33.3); Mean Corpuscular Volume 105.1 fL (83.0-100.0); Mean Platelet Volume 10.3 fL (9.4-12.4); Monocytes # 0.9 K/mcL (0.0-1.3); Monocytes % 5.6 %; Neutrophils # 12.8 K/mcL (1.6-8.9); Red Blood Count 2.16 M/mcL (3.82-4.97); Segmented Neutrophils % 76.7 %
[2018-05-29 11:49] LABS: VBG HCO3 18 mEq/L (21-27); VBG PCO2 37 mmHg (41-51); VBG PH 7.31 pH Units (7.32-7.42); VBG PO2 122 mmHg (25-50)
[2018-05-29 11:57] LABS: INR 1.8
[2018-05-29 12:12] LABS: Platelet Count 77 K/mcL (140-400)
[2018-05-29 12:13] LABS: Anisocytosis 1+ (Not Present); Platelet Estimate Slight Decrease (Normal)
[2018-05-29 12:15] LABS: Acanthocytes 1+ (Not Present)
[2018-05-29] MEDS ORDERED: Insulin DETEMIR 100 UNIT/ML X5UNITS SQ ONE (12:15)
[2018-05-29 12:17] LABS: BUN/Creatinine Ratio 18 (6-26); Blood Urea Nitrogen 9 mg/dL (6-20); Calcium 7.7 mg/dL (8.6-10.3); Carbon Dioxide 19 mEq/L (23-29); Chloride 105 mEq/L (98-107); Glucose 131 mg/dL (70-105); Osmolality,Calculated 272 (280-300); Potassium 4.1 mEq/L (3.5-5.1); Sodium 131 mEq/L (136-145); eGFR For Non-African Americans > 60 (> 60)
[2018-05-29] MEDS ORDERED: Albumin 25% 25gram/100mL 25 GM/100 ML IV.SOLN IVC SCH (14:00)
[2018-05-29] MEDS ORDERED: *HR* LORazepam Oral Conc 2 MG/ML PO PRN (15:42)
[2018-05-29] MEDS ORDERED: Pantoprazole 40 MG VIAL IVP ONE (16:19)
--- NOTE | 2018-05-29 16:21 | Discharge Summary ---
Orders not resulted at time of discharge: Pending orders 05/28/18 22:11 EKG [ECG 12 lead ECG] [ECG] Stat 05/29/18 00:40 Culture,Urine [RM] Routine 05/29/18 01:03 Culture,Blood [BC] Stat 05/29/18 02:12 EV echocardiogram Routine 05/29/18 10:28 Occult Blood,Stool [BF] Routine 05/29/18 13:10 Cell Cnt w Dif, Peritoneal Fl [BF] Stat Glucose,Peritoneal Fluid [BF] Stat LDH,Peritoneal Fluid [BF] Stat Total Protein,Peritoneal Fluid [BF] Stat 05/29/18 13:11 Hepatic Panel Stat 05/30/18 02:45 Basic Metabolic Panel DAILY 05/31/18 02:45 Basic Metabolic Panel DAILY Date of Encounter: 05/29/18 Time of Encounter: 16:15 - Discharge Diagnosis (1) Anemia Priority: Primary Status: Acute Qualifiers: Anemia type: unspecified type Qualified Code(s): D64.9 - Anemia, unspecified (2) DKA (diabetic ketoacidoses) Priority: Primary Status: Acute Qualifiers: Diabetes mellitus type: other specified (including BLANCA) Diabetes mellitus complication detail: without coma Qualified Code(s): E13.10 - Other specified diabetes mellitus with ketoacidosis without coma (3) Elevated INR Priority: Primary Status: Acute (4) End stage liver disease Priority: Secondary Status: Acute (5) Goals of care, counseling/discussion Priority: Secondary Status: Acute (6) Hyponatremia Priority: Primary Status: Acute (7) Jaundice Priority: Secondary Status: Acute (8) Sepsis Priority: Primary Status: Acute Qualifiers: Sepsis type: sepsis due to unspecified organism Qualified Code(s): A41.9 - Sepsis, unspecified organism (9) Lactic acidosis Priority: Primary Status: Acute (10) Anxiety and depression Priority: Secondary Status: Chronic Hospital course: Ms. Coronado is a 27 year old female with past medical history of chronic alcoholism with end-stage liver disease, history of IV drug use, asthma, anxiety who recently had esophageal variceal banding for CVA upper GI bleed with hemoglobin of 2.5 was recently discharged to [facility] from [facility] came in with complain of feeling sick and weak. Patient reported low- grade fevers chills with last drink about a month ago. Patient was found to have DKA is on initial labs in ER with anion gap of 17 and blood glucose of 600s. Patient was started on DKA protocol and admitted to stepdown unit. Patient initially refused the being transferred to [facility] when discussed in ER. Patient also complaining abdominal pain and given her tachycardia and low-grade fever and elevated lactic acid she was started on vancomycin and Zosyn for possible SBP versus pneumonia based on chest x-ray. Patient has end-stage liver disease with current meld score of 28 and DF score of 54. Patient was previously evaluated by executive marketing assistant in [place] and was told she was not a candidate for liver transplant. Currently patient hemoglobin is 7.1 from 7.5 after getting a unit of transfusion. Her current INR is 1.8 with direct bilirubin of 8.8. Patient currently on prednisone. Patient received 1 unit of FFP after attempts to obtain peritoneal fluid given abdominal distention which was unsuccessful given minimal amount of fluid on ultrasound as well as CT. Abdominal CAT scan was obtained to evaluate for abdominal distention which showed bilateral small pleural effusion, small ascites, body wall edema and possible pancreatic duct dilated. Palliative care was consulted for goals of care given patient was recently DNR CC when transferred from long term. Discussion were made with the father and mother for active treatment versus hospice given patient currently not able to comprehend completely. They chose to be transferred to tertiary care center for treatment for now. They are aware of terminal nature of her illness. Patient was also made [id number] DNI after discussion. Patient would be transferred to tertiary [facility] has patient has likelihood of having upper GI bleeding given her coagulopathy and her low hemoglobin. Arrangements were made to transfer given no GI coverage for endoscopy and banding on weekends and high likelihood of decompensation. Patient's anion gap has closed by the time of discharge and started on clear liquid diet in anticipation if needed endoscopy. Hemod ynamically stable on discharge. Discharge discussed with: patient, family, nurse, social work, case management, it support consultant - Time Spent with Patient Total time spent providing and/or coordinating discharge services: Greater than 30 minutes (55) - Discharge Medications Home Medications: Albuterol Sulfate [Albuterol Inhaler] 2 puff IH Q6HR PRN 05/29/18 [History] Amino Acids/Protein Hydrolys [Pro-Stat Awc Liquid Packet] 30 ml PO DAILY 05/29/18 [History] Budesonide/Formoterol 160/4.5 [Symbicort 160/4.5] 2 puff IH BIDR 05/29/18 [History] Citalopram Hydrobromide [Citalopram HBr] 10 mg PO DAILY 05/29/18 [History] Fluconazole [Diflucan] 150 mg PO DAILY 05/29/18 [History] Fluticasone Propionate [Flovent Hfa] 1 puff IH DAILY 05/29/18 [History] Folic Acid 1 mg PO DAILY 05/29/18 [History] Furosemide [Lasix] 20 mg PO DAILY 05/29/18 [History] Insulin Human Regular [HumuLIN R] 2 - 6 unit SQ WMHS 05/29/18 [History] LORazepam [Ativan] 0.5 mg PO Q4HR PRN 05/29/18 [History] Lactulose 20 gm PO BID PRN 05/29/18 [History] Nystatin [Nystatin Suspension] 500,000 units PO QID PRN 05/29/18 [History] Pantoprazole Sodium [Protonix] 40 mg PO BID 05/29/18 [History] Promethazine [Phenergan] 25 mg PO Q6HR PRN 05/29/18 [History] Spironolactone 50 mg PO DAILY 05/29/18 [History] Sulfamethoxazole/Trimeth DS [Bactrim Ds] 1 tab PO BID 05/29/18 [History] predniSONE [Prednisone Intensol] 13.3 ml PO DAILY 05/29/18 [History] Allergies/Adverse Reactions: Allergy/AdvReac Type Severity Reaction Status Date / Time peanut Allergy Hives Verified 12/10/16 10:00 acetaminophen [From Tylenol] AdvReac See Verified 12/10/16 10:03 Comments Date of admission: 05/28/18 23:57 Primary care physician: Michael Haque DO Consults: 05/28/18 21:51 Consult to Palliative Care [CONS] Stat Comment: Consulting Provider: Palliative Care Joselin Reason for Consult: end of life goals Call Completed: No - Constitutional Vitals: Temp Pulse Resp BP Pulse Ox 98.5 F 97 18 103/62 100 05/29/18 15:33 05/29/18 15:33 05/29/18 15:33 05/29/18 15:33 05/29/18 15:33 General appearance: Present: A&O X 3, no acute distress, underweight, answers questions appropriately Exam: General: In no acute distress. Conversant. generalized edema. Icteric skin and sclera Respiratory exam: Decreased air entry at base. no accessory muscle use, rales, rhonchi, wheezes Cardiovascular exam: RRR, +S1, +S2. no gallop, rubs. Ejection systolic murmur. GI/Abdominal exam: Generalized tenderness, Distended abdomen, Fluid thrill present, bowel sound present, no peritoneal signs. Extremities exam: full ROM, 1+ pedal edema, warm, pulses palpable in b/l lower extremities. no calf tenderness Neurological exam: CN II-XII intact, AO X2, no focal deficits. Somewhat drowsy. Skin exam: Icteric, spider angioma present - Patient Status Disposition: Transfer Hospital Swing Bed - Discharge Instructions Follow Up With: Ej Emmanuel DO [Resident] - (patient is going to [facility] no PCP appointment needed) Forms: ED Satisfaction Letter, Work/School Release
[2018-05-29 17:45] VITALS: BP 94/61
[2018-05-29] MEDS ORDERED: *HR* OxyCODONE ER (12 HR) 10 MG TABLET PO SCH (18:00)
== END 2018-05-29 18:10 | disposition other institution (70) | DRG 720 ==
LOC: EMEROOARM 18:35 → 2NNU 23:57
PROVIDERS: ADMIT Pediatrics; ATTEND Pediatrics

== ENCOUNTER 2019-02-20 10:55 | Inpatient (IN) ==
[2019-02-20] MEDS ORDERED: Pantoprazole 80 MG in 0.9 % Sodium Chloride 50 ML IVPB ONE (11:06)
[2019-02-20] MEDS ORDERED: Octreotide 50 MCG/ML INJ IVP ONE (11:06)
[2019-02-20] MEDS ORDERED: 0.9 % Sodium Chloride 1,000 ML IVC ONE ×2 (11:15→21:49)
[2019-02-20] MEDS ORDERED: Pantoprazole 40 MG in 0.9 % Sodium Chloride Mini Bag 100 ML IVC SCH (11:30)
[2019-02-20 12:21] LABS: Hemoglobin 8.2 g/dL (11.5-15.4); Mean Platelet Volume 10.8 fL (9.4-12.4)
[2019-02-20 12:23] LABS: Basophils % 0.5 %; Eosinophils # 0.1 K/mcL (0.0-0.6); Eosinophils % 1.7 %; Hematocrit 25.1 % (35.3-44.9); Immature Granulocytes % 1.7 % (0-4); Immature Platelets 3.9 % (1.1-6.1); Lymphocytes # 1.5 K/mcL (0.6-4.6); Lymphocytes % 23.2 %; Mean Corpuscular HGB Conc 32.7 g/dL (31.6-35.5); Mean Corpuscular Hemoglobin 35.3 pg (28.0-33.3); Mean Corpuscular Volume 108.2 fL (83.0-100.0); Monocytes # 0.6 K/mcL (0.0-1.3); Monocytes % 9.5 %; Red Blood Count 2.32 M/mcL (3.82-4.97); Segmented Neutrophils % 63.4 %; White Blood Count 6.3 K/mcL (4.3-11.1)
[2019-02-20 12:31] LABS: INR 1.6; Prothrombin Time 18.4 Seconds (9.4-12.1)
[2019-02-20 12:33] LABS: Platelet Count 49 K/mcL (140-400); Platelet Estimate Decreased (Normal)
[2019-02-20 12:34] LABS: Activated Partial Thrombo Time 37.2 Seconds (26.0-36.0)
[2019-02-20 12:39] LABS: Alanine Aminotransferase 48 Units/L (7-52); Albumin 3.5 g/dL (3.5-5.7); Alkaline Phosphatase 122 Units/L (34-104); BUN/Creatinine Ratio 24 (6-26); Bilirubin,Direct 1.8 mg/dL (0.0-0.2); Bilirubin,Indirect 2.2 mg/dL (0.0-1.2); Blood Urea Nitrogen 9 mg/dL (6-20); Calcium 8.1 mg/dL (8.6-10.3); Carbon Dioxide 23 mEq/L (23-29); Chloride 103 mEq/L (98-107); Ethanol 373 mg/dL (Less than 10); Globulin 3.6 g/dL (2.4-3.5); Glucose 151 mg/dL (70-105); Osmolality,Calculated 290 (280-300); Potassium 3.5 mEq/L (3.5-5.1); Sodium 139 mEq/L (136-145); Total Protein 7.1 g/dL (6.4-8.9); eGFR For African Americans > 60 (> 60); eGFR For Non-African Americans > 60 (> 60)
[2019-02-20 12:42] LABS: Aspartate Amino Transferase 164 Units/L (13-39)
[2019-02-20] MEDS: Octreotide 400 MCG in 0.9 % Sodium Chloride 100 ML IVC SCH (14:00)
[2019-02-20] MEDS ORDERED: cefTRIAXone 2,000 MG in Water for inj. (sterile) 20 ML IVP SCH (16:00)
[2019-02-20] MEDS ORDERED: *HR* FentaNYL (PF) 100 MCG/2 ML VIAL ONE (16:12)
[2019-02-20] MEDS ORDERED: Isovue-370 500 ML BOTTLE IVP ONE (16:40)
[2019-02-20 17:31] LABS: Basophils % 0.1 %; Eosinophils # 0.1 K/mcL (0.0-0.6); Eosinophils % 0.9 %; Hematocrit 16.6 % (35.3-44.9); Immature Granulocytes % 4.7 % (0-4); Lymphocytes # 2.6 K/mcL (0.6-4.6); Mean Corpuscular HGB Conc 31.3 g/dL (31.6-35.5); Mean Corpuscular Hemoglobin 36.1 pg (28.0-33.3); Mean Corpuscular Volume 115.3 fL (83.0-100.0); Mean Platelet Volume 10.6 fL (9.4-12.4); Monocytes # 0.8 K/mcL (0.0-1.3); Monocytes % 5.4 %; Red Blood Count 1.44 M/mcL (3.82-4.97); Red Cell Distribution Width 20.4 % (11.5-14.5); Segmented Neutrophils % 71.9 %; White Blood Count 15.3 K/mcL (4.3-11.1)
[2019-02-20 17:33] LABS: Platelet Count 69 K/mcL (140-400)
[2019-02-20 17:36] LABS: Hemoglobin 5.2 g/dL (11.5-15.4)
[2019-02-20 17:57] LABS: Anisocytosis 2+ (Not Present); Hypochromasia Present (Not Present); Large Platelets Present (Not Present); Macrocytosis Present (Not Present); Platelet Estimate Decreased (Normal); Poikilocytosis 1+ (Not Present); Toxic Granulation Present (Not Present)
[2019-02-20] MEDS ORDERED: Thiamine (B-1) 100 MG, Folic Acid 1 MG, MVI, adult with vitamin K 10 ML in 0.9 % Sodi... IVPB SCH (18:00)
[2019-02-20] MEDS ORDERED: 0.9 % Sodium Chloride 250 ML ONE (18:12)
[2019-02-20] MEDS: Ondansetron 4 MG/2 ML VIAL IVP PRN (18:13)
[2019-02-20] MEDS: *HR* LORazepam 2 MG/ML VIAL IVP PRN (18:13)
[2019-02-20] MEDS ORDERED: *HR* Promethazine 25 MG/ML VIAL ONE (20:11)
[2019-02-20] MEDS ORDERED: Dexmedetomidine HCl 400 MCG/100 ML MLS IVC ONE (20:11)
[2019-02-20] MEDS ORDERED: *HR* Metoprolol 5 MG/5 ML VIAL IVP ONE ×2 (20:11→20:21)
[2019-02-20] MEDS ORDERED: *HR* Promethazine 25 MG/ML VIAL IM PRN (20:15)
[2019-02-20] MEDS: *HR* Metoprolol 5 MG/5 ML VIAL IVP PRN ×2 (20:18→20:31)
[2019-02-20] MEDS: Dexmedetomidine HCl 400 MCG/100 ML MLS IVC SCH (20:30)
[2019-02-20 20:42] LABS: Bilirubin,Urine Negative (Negative); Blood,Urine Negative (Negative); Clarity,Urine Clear (Clear); Color,Urine Yellow (Yellow); Glucose,Urine (UA) Normal (Normal); Ketones,Urine 15 mg/dL (Negative); Leukocyte Esterase,Urine Negative (Negative); Nitrite,Urine Negative (Negative); PH,Urine 6.5 pH Units (5.0-8.0); Protein,Urine Negative (Neg-Trace); Specific Gravity,Urine > 1.030 (1.010-1.025); Urobilinogen,Urine Normal (Normal)
[2019-02-20] MEDS: Nicotine 21 MG PATCH.TD24 TD SCH (20:43)
[2019-02-20] MEDS ORDERED: *HR* Promethazine 25 MG/ML VIAL IV PRN (21:00)
[2019-02-20] MEDS: Pantoprazole 40 MG VIAL IVP SCH (22:10)
[2019-02-20] MEDS ORDERED: Norepinephrine 4 MG in D5% in Water 250 ML IVC SCH (22:30)
[2019-02-21 01:23] LABS: Basophils % 0.2 %; Hematocrit 20.5 % (35.3-44.9); Hemoglobin 6.5 g/dL (11.5-15.4); Immature Granulocytes % 0.9 % (0-4); Lymphocytes # 0.8 K/mcL (0.6-4.6); Lymphocytes % 17.2 %; Mean Corpuscular HGB Conc 31.7 g/dL (31.6-35.5); Mean Platelet Volume 10.9 fL (9.4-12.4); Monocytes # 0.3 K/mcL (0.0-1.3); Monocytes % 7.4 %; Neutrophils # 3.4 K/mcL (1.6-8.9); Red Blood Count 1.97 M/mcL (3.82-4.97); Red Cell Distribution Width 20.9 % (11.5-14.5); Segmented Neutrophils % 74.3 %
[2019-02-21 01:24] LABS: Mean Corpuscular Volume 104.1 fL (83.0-100.0); Platelet Count 31 K/mcL (140-400); White Blood Count 4.6 K/mcL (4.3-11.1)
[2019-02-21] MEDS: *HR* LORazepam 2 MG/ML VIAL IVP PRN ×3 (02:05→23:07)
[2019-02-21] MEDS: Octreotide 400 MCG in 0.9 % Sodium Chloride 100 ML IVC SCH ×2 (02:25→17:45)
[2019-02-21] MEDS: Dexmedetomidine HCl 400 MCG/100 ML MLS IVC SCH (03:36)
[2019-02-21] MEDS: Pantoprazole 40 MG VIAL IVP SCH ×2 (04:36→17:44)
[2019-02-21] MEDS ORDERED: 0.9 % Sodium Chloride 250 ML ONE ×2 (06:09→17:34)
[2019-02-21] MEDS: Nicotine 21 MG PATCH.TD24 TD SCH (07:46)
[2019-02-21 10:06] LABS: Basophils % 0.4 %; Eosinophils % 0.6 %; Hematocrit 24.8 % (35.3-44.9); Immature Granulocytes % 0.8 % (0-4); Lymphocytes # 1.1 K/mcL (0.6-4.6); Lymphocytes % 23.1 %; Mean Corpuscular HGB Conc 33.1 g/dL (31.6-35.5); Mean Corpuscular Hemoglobin 32.4 pg (28.0-33.3); Mean Platelet Volume 10.9 fL (9.4-12.4); Monocytes # 0.3 K/mcL (0.0-1.3); Monocytes % 6.4 %; Neutrophils # 3.2 K/mcL (1.6-8.9); Red Blood Count 2.53 M/mcL (3.82-4.97); Red Cell Distribution Width 18.9 % (11.5-14.5); Segmented Neutrophils % 68.7 %; White Blood Count 4.7 K/mcL (4.3-11.1)
[2019-02-21 10:14] LABS: INR 1.8; Prothrombin Time 20.3 Seconds (9.4-12.1)
[2019-02-21 10:17] LABS: Activated Partial Thrombo Time 34.4 Seconds (26.0-36.0)
[2019-02-21 10:18] LABS: Hemoglobin 8.2 g/dL (11.5-15.4); Platelet Count 34 K/mcL (140-400)
[2019-02-21 10:22] LABS: Platelet Estimate Marked Decrease (Normal)
[2019-02-21 10:49] LABS: Alanine Aminotransferase 98 Units/L (7-52); Albumin/Globulin Ratio 1.2 (1.1-2.2); Alkaline Phosphatase 92 Units/L (34-104); Aspartate Amino Transferase 536 Units/L (13-39); BUN/Creatinine Ratio 42 (6-26); Bilirubin,Total 5.6 mg/dL (0.3-1.0); Blood Urea Nitrogen 21 mg/dL (6-20); Calcium 7.2 mg/dL (8.6-10.3); Carbon Dioxide 25 mEq/L (23-29); Chloride 109 mEq/L (98-107); Globulin 2.6 g/dL (2.4-3.5); Glucose 188 mg/dL (70-105); Osmolality,Calculated 308 (280-300); Potassium 3.9 mEq/L (3.5-5.1); Sodium 145 mEq/L (136-145); Total Protein 5.6 g/dL (6.4-8.9); eGFR For African Americans > 60 (> 60); eGFR For Non-African Americans > 60 (> 60)
[2019-02-21] MEDS: Ondansetron 4 MG/2 ML VIAL IVP PRN ×3 (10:50→19:07)
[2019-02-21] MEDS ORDERED: *HR* Promethazine 25 MG/ML VIAL IV PRN (12:57)
[2019-02-21 15:15] LABS: Hematocrit 23.5 % (35.3-44.9)
[2019-02-21] MEDS: Thiamine (B-1) 100 MG, Folic Acid 1 MG, MVI, adult with vitamin K 10 ML in 0.9 % Sodi... IVPB SCH (17:44)
[2019-02-21] MEDS: cefTRIAXone 2,000 MG in Water for inj. (sterile) 20 ML IVP SCH (17:45)
[2019-02-22 03:53] LABS: Mean Corpuscular Hemoglobin 32.8 pg (28.0-33.3); Mean Platelet Volume 10.7 fL (9.4-12.4)
[2019-02-22 03:55] LABS: Basophils % 0.2 %; Eosinophils # 0.1 K/mcL (0.0-0.6); Eosinophils % 1.8 %; Hematocrit 24.2 % (35.3-44.9); Hemoglobin 8.1 g/dL (11.5-15.4); Immature Granulocytes % 4.1 % (0-4); Immature Platelets 5.3 % (1.1-6.1); Lymphocytes # 0.9 K/mcL (0.6-4.6); Lymphocytes % 19.6 %; Mean Corpuscular HGB Conc 33.5 g/dL (31.6-35.5); Monocytes # 0.3 K/mcL (0.0-1.3); Monocytes % 6.6 %; Red Blood Count 2.47 M/mcL (3.82-4.97); Segmented Neutrophils % 67.7 %; White Blood Count 4.4 K/mcL (4.3-11.1)
[2019-02-22 03:58] LABS: Platelet Count 40 K/mcL (140-400)
[2019-02-22 04:08] LABS: BUN/Creatinine Ratio 33 (6-26); Blood Urea Nitrogen 15 mg/dL (6-20); Calcium 7.9 mg/dL (8.6-10.3); Carbon Dioxide 25 mEq/L (23-29); Chloride 105 mEq/L (98-107); Glucose 140 mg/dL (70-105); Osmolality,Calculated 293 (280-300); Potassium 3.1 mEq/L (3.5-5.1); Sodium 140 mEq/L (136-145); eGFR For African Americans > 60 (> 60); eGFR For Non-African Americans > 60 (> 60)
[2019-02-22] MEDS: Pantoprazole 40 MG VIAL IVP SCH ×2 (05:46→16:57)
[2019-02-22] MEDS: Ondansetron 4 MG/2 ML VIAL IVP PRN ×2 (05:46→16:57)
[2019-02-22 06:11] LABS: Anisocytosis 1+ (Not Present); Hypochromasia Present (Not Present); Macrocytosis Present (Not Present); Polychromasia 1+ (Not Present); Tear Drop Cells 1+ (Not Present)
[2019-02-22 06:12] LABS: Platelet Estimate Decreased (Normal); Poikilocytosis 1+ (Not Present)
[2019-02-22] MEDS: Nicotine 21 MG PATCH.TD24 TD SCH (09:57)
[2019-02-22] MEDS: Octreotide 400 MCG in 0.9 % Sodium Chloride 100 ML IVC SCH (10:27)
[2019-02-22] MEDS: cefTRIAXone 2,000 MG in Water for inj. (sterile) 20 ML IVP SCH (16:57)
[2019-02-22] MEDS: Thiamine (B-1) 100 MG, Folic Acid 1 MG, MVI, adult with vitamin K 10 ML in 0.9 % Sodi... IVPB SCH (16:57)
[2019-02-22] MEDS ORDERED: *HR* FentaNYL (PF) 100 MCG/2 ML VIAL IVP ONE (18:12)
[2019-02-22] MEDS ORDERED: Potassium Chloride Elixir 20 MEQ/15 ML UDC PO ONE (18:18)
[2019-02-22] MEDS ORDERED: *HR* LORazepam 2 MG/ML VIAL IVP ONE (21:02)
[2019-02-22] MEDS: *HR* LORazepam 2 MG/ML VIAL IVP PRN (23:47)
[2019-02-23] MEDS: Octreotide 400 MCG in 0.9 % Sodium Chloride 100 ML IVC SCH ×2 (02:31→20:07)
[2019-02-23] MEDS ORDERED: *HR* OxyCODONE Immed Rel 5 MG TABLET PO ONE (02:44)
[2019-02-23] MEDS: Pantoprazole 40 MG VIAL IVP SCH ×2 (05:38→17:25)
[2019-02-23 06:00] LABS: Basophils % 0.5 %; Mean Corpuscular HGB Conc 33.9 g/dL (31.6-35.5); Mean Corpuscular Hemoglobin 32.9 pg (28.0-33.3); Mean Corpuscular Volume 97.2 fL (83.0-100.0); Red Cell Distribution Width 18.6 % (11.5-14.5)
[2019-02-23 06:02] LABS: Eosinophils # 0.1 K/mcL (0.0-0.6); Eosinophils % 1.7 %; Hematocrit 23.9 % (35.3-44.9); Hemoglobin 8.1 g/dL (11.5-15.4); Immature Platelets 2.5 % (1.1-6.1); Lymphocytes # 0.9 K/mcL (0.6-4.6); Lymphocytes % 22.7 %; Mean Platelet Volume 10.6 fL (9.4-12.4); Monocytes # 0.2 K/mcL (0.0-1.3); Monocytes % 5.7 %; Red Blood Count 2.46 M/mcL (3.82-4.97); Segmented Neutrophils % 67.4 %; White Blood Count 4.1 K/mcL (4.3-11.1)
[2019-02-23 06:11] LABS: Neutrophils # 2.8 K/mcL (1.6-8.9); Platelet Count 43 K/mcL (140-400)
[2019-02-23 06:25] LABS: Alanine Aminotransferase 69 Units/L (7-52); Albumin 3.2 g/dL (3.5-5.7); Albumin/Globulin Ratio 1.1 (1.1-2.2); Alkaline Phosphatase 100 Units/L (34-104); Aspartate Amino Transferase 202 Units/L (13-39); BUN/Creatinine Ratio 17 (6-26); Bilirubin,Total 4.4 mg/dL (0.3-1.0); Blood Urea Nitrogen 8 mg/dL (6-20); Calcium 8.2 mg/dL (8.6-10.3); Carbon Dioxide 26 mEq/L (23-29); Chloride 104 mEq/L (98-107); Globulin 2.9 g/dL (2.4-3.5); Glucose 110 mg/dL (70-105); Osmolality,Calculated 289 (280-300); Potassium 3.4 mEq/L (3.5-5.1); Sodium 140 mEq/L (136-145); Total Protein 6.1 g/dL (6.4-8.9); eGFR For African Americans > 60 (> 60); eGFR For Non-African Americans > 60 (> 60)
[2019-02-23] MEDS: Nicotine 21 MG PATCH.TD24 TD SCH (09:28)
[2019-02-23] MEDS ORDERED: *HR* FentaNYL (PF) 100 MCG/2 ML VIAL IVP ONE (09:42)
[2019-02-23] MEDS ORDERED: *HR* LORazepam 2 MG/ML VIAL IVP PRN ×3 (09:43)
[2019-02-23] MEDS: Potassium Chloride Elixir 20 MEQ/15 ML UDC PO SCH (10:26)
[2019-02-23] MEDS: *HR* OxyCODONE Immed Rel 5 MG TABLET PO PRN ×2 (15:13→23:00)
[2019-02-23] MEDS: cefTRIAXone 2,000 MG in Water for inj. (sterile) 20 ML IVP SCH (15:36)
[2019-02-24] MEDS: Pantoprazole 40 MG VIAL IVP SCH (06:13)
[2019-02-24] MEDS: *HR* OxyCODONE Immed Rel 5 MG TABLET PO PRN ×2 (06:13→12:33)
[2019-02-24 06:25] LABS: Basophils % 0.5 %; Hemoglobin 9.4 g/dL (11.5-15.4); Red Cell Distribution Width 18.5 % (11.5-14.5)
[2019-02-24 06:27] LABS: Eosinophils # 0.1 K/mcL (0.0-0.6); Eosinophils % 3.1 %; Hematocrit 27.7 % (35.3-44.9); Immature Granulocytes % 1.6 % (0-4); Immature Platelets 2.8 % (1.1-6.1); Lymphocytes % 26.2 %; Mean Corpuscular HGB Conc 33.9 g/dL (31.6-35.5); Mean Corpuscular Hemoglobin 32.6 pg (28.0-33.3); Mean Corpuscular Volume 96.2 fL (83.0-100.0); Mean Platelet Volume 9.1 fL (9.4-12.4); Monocytes # 0.3 K/mcL (0.0-1.3); Monocytes % 6.7 %; Neutrophils # 2.4 K/mcL (1.6-8.9); Red Blood Count 2.88 M/mcL (3.82-4.97); Segmented Neutrophils % 61.9 %; White Blood Count 3.9 K/mcL (4.3-11.1)
[2019-02-24 06:28] LABS: Platelet Count 48 K/mcL (140-400)
[2019-02-24] MEDS ORDERED: Cefdinir 300 MG CAPSULE PO SCH (09:51)
[2019-02-24] MEDS: Potassium Chloride Elixir 20 MEQ/15 ML UDC PO SCH (10:06)
[2019-02-24] MEDS: Nicotine 21 MG PATCH.TD24 TD SCH (10:06)
[2019-02-24 11:33] VITALS: BP 124/83
== END 2019-02-24 13:09 | disposition home or self-care (01) | DRG 280 ==
LOC: EMEROOARM 10:55 → SUATTDRO 14:40 → ICNU 14:40 → 2ANU 02-21 14:18
PROVIDERS: ADMIT Internal Medicine; ATTEND Internal Medicine

== ENCOUNTER 2019-03-26 13:44 | Observation (INO) ==
[2019-03-26] MEDS ORDERED: 0.9 % Sodium Chloride 4,000 ML ONE ×2 (13:51→14:48)
[2019-03-26] MEDS ORDERED: Pantoprazole 80 MG in 0.9 % Sodium Chloride 50 ML IVPB ONE (13:52)
[2019-03-26] MEDS ORDERED: cefTRIAXone 1,000 MG in Water for inj. (sterile) 10 ML IVP ONE (13:52)
[2019-03-26] MEDS ORDERED: 0.9 % Sodium Chloride 1,000 ML IVC ONE (13:52)
[2019-03-26] MEDS ORDERED: Octreotide 400 MCG in 0.9 % Sodium Chloride 100 ML IVC SCH (14:00)
[2019-03-26 14:12] LABS: Immature Granulocytes % 1.7 % (0-4)
[2019-03-26 14:14] LABS: Basophils # 0.1 K/mcL (0.0-0.2); Basophils % 0.9 %; Eosinophils # 0.1 K/mcL (0.0-0.6); Hematocrit 26.4 % (35.3-44.9); Hemoglobin 8.6 g/dL (11.5-15.4); Immature Platelets 4.2 % (1.1-6.1); Lymphocytes % 46.6 %; Mean Corpuscular HGB Conc 32.6 g/dL (31.6-35.5); Mean Corpuscular Volume 107.3 fL (83.0-100.0); Mean Platelet Volume 10.4 fL (9.4-12.4); Monocytes # 0.5 K/mcL (0.0-1.3); Monocytes % 7.7 %; Neutrophils # 2.6 K/mcL (1.6-8.9); Red Blood Count 2.46 M/mcL (3.82-4.97); Red Cell Distribution Width 21.1 % (11.5-14.5); Segmented Neutrophils % 41.1 %; White Blood Count 6.4 K/mcL (4.3-11.1)
--- NOTE | 2019-03-26 14:14 | Emergency Department Note ---
Disposition Clinical Impression: Alcoholism, Thrombocytopenia, History of esophageal varices, Hyperammonemia, End stage liver disease Esophageal varices Qualifiers: Esophageal varices type: unspecified type Esophageal varices bleeding: with bleeding Qualified Code(s): I85.01 - Esophageal varices with bleeding Disposition: Admitted As Inpatient Condition: Serious Time of Disposition: 14:57 GI Bleed HPI - General Chief complaint: ED GI Bleed Stated complaint: Vomiting Time Seen by Provider: 03/26/19 13:51 Source: patient, EMS Limitations: no limitations Nursing Notes Reviewed: Yes Vital Signs Reviewed: Yes - History of Present Illness HPI Narrative: Patient is a 28-year-old female presenting with active GI bleed. Patient with known history of end-stage cirrhosis, varices requiring banding in February 2019. Patient continues to be active alcoholic, last drink was today. Just prior to arrival, the patient began to have active hematemesis, she states that this is been going on for about a half hour at this point, she called EMS for further assistance. Patient otherwise states that she is in no chest pain, no abdominal pain, she does feel significantly weak throughout her entire body. She also s tates that yesterday, she was walking in her home, became slightly weak and fell onto her left wrist, she did not hit her head or have loss of consciousness. - Related Data Home Medications Medication Instructions Recorded Confirmed Buspirone HCl [Buspar] 10 mg PO BID 02/21/19 03/26/19 Duloxetine HCl [Cymbalta] 60 mg PO DAILY 02/21/19 03/26/19 Furosemide [Lasix] 40 mg PO BID 02/21/19 03/26/19 Lactulose [Enulose] 20 gm PO TID 02/21/19 03/26/19 Loratadine [Claritin] 10 mg PO DAILY 02/21/19 03/26/19 Midodrine HCl 2.5 mg PO TID 02/21/19 03/26/19 Potassium Chloride [K-Tab ER] 20 meq PO BID 02/21/19 03/26/19 hydrOXYzine HCl [Hydroxyzine HCl] 25 mg PO Q4H PRN 02/21/19 03/26/19 Previous Rx's Medication Instructions Recorded Nadolol 20 mg PO HS 30 Days #30 tablet 02/24/19 Allergies Allergy/AdvReac Type Severity Reaction Status Date / Time peanut Allergy Hives Verified 01/20/19 09:56 acetaminophen [From Tylenol] AdvReac See Verified 01/20/19 09:56 Comments All systems ED: reviewed and negative except as stated. Review of Systems: As Per HPI Constitutional: Denies: fever, chills ENT ED: Denies: congestion Cardiovascular: Denies: chest pain, palpitations Respiratory: Denies: cough, dyspnea Gastrointestinal: Reports: hematemesis. Denies: abdominal pain, nausea, melena, hematochezia Genitourinary: Denies: dysuria Integumentary: Denies: rash Neurological: Reports: weakness. 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: Reports: other - Social History Smoking Status: Current every day smoker Smokeless Tobacco Status: No Alcohol use: Reports: heavy Drug use: Reports: unknown, opiates Physical Exam - General Limitations: no limitations General appearance: appears intoxicated, lethargic - Head Head exam: normal inspection - Eye Eye exam: Present: PERRL, EOMI, scleral icterus - ENT ENT exam: mucous membranes dry (Active hematemesis at bedside) - Neck Neck exam: Present: normal inspection - Chest Chest inspection: Present: normal inspection, symmetric chest wall rise - Respiratory Respiratory exam: Present: normal lung sounds bilaterally. Absent: respiratory distress, wheezes - Cardiovascular Cardiovascular exam: Present: normal rhythm, tachycardia - Abdominal Exam Abdominal exam: Present: soft, Non-Tender, other (Patient with significant distention to the abdomen, with ascites). Absent: guarding, rebound - Extremities Exam Extremities exam: Present: normal capillary refill, pedal edema (2-3+ pitting edema to the lower extremities up to the knee) - Expanded Lower Extremity Exam Neurovascular/Tendon exam: Absent: pulse deficit, motor deficit, sensory deficit - Neurological Exam Neurological exam: Present: alert, oriented X3 - Psychiatric Psychiatric exam: Present: normal affect, anxious - Skin Skin exam: Present: warm, dry, other (Slightly jaundiced to the chest). Absent: pallor Course Vital Signs Temperature 98.2 F 03/26/19 13:48 Pulse Rate 153 03/26/19 13:48 Respiratory Rate 24 03/26/19 13:48 Blood Pressure 111/63 03/26/19 13:48 O2 Sat by Pulse Oximetry 91 03/26/19 13:48 Temperature 98.2 F 03/26/19 13:48 Pulse Rate 114 03/26/19 14:43 Respiratory Rate 24 03/26/19 13:48 Blood Pressure 121/86 03/26/19 14:43 O2 Sat by Pulse Oximetry 99 03/26/19 14:43 Oxygen Delivery Oxygen Delivery Nasal Cannula GI Bleed - [facility] Narrative Medical decision making narrative: Patient is a 28-year-old female who is presenting with active variceal bleed. Patient with known history of cirrhosis, end-stage, known history of variceal bleed in the past, most recently in February 2019 requiring banding. On arrival, patient is normotensive with tachycardia in the 150s to 160s, patient does not appear intoxicated and anxious. She is actively vomiting blood approximately 200 mL here in the ER. While here in the ER, patient has active hematemesis of approximately 1200 mL in total. While here in the ER, patient's blood pressure does not go below 110 systolic, she was given a total of 2 L normal saline via pressure bag on arrival, 3 total IVs were placed. Patient was given Protonix, octreotide bolus and octreotide drip, she was also given a gram of Rocephin. Given patient's active hematemesis, trauma blood was ordered. Patient was given approximately 4 total units of PRBCs, 2 units of plasma and 1 unit of platelets. Given patient's significant active bleed, with history of varices concern for active variceal bleed. I initially spoke with nurse practitionerJovita, who states that he will try to get a hold of Dr. Lee for definitive treatment. As I did not hear back from Dr. Lee within 20 minutes of paging, I spoke with Dr. Banda, Dr. Banda states that Dr. Lee is able to do banding for variceal bleed, he would need to provide the definitive treatment. Nurse practitioner Jovita was able to come down to the ER, we were able to get in touch with Dr. Lee, I spoke with directly with Dr. Lee who states that he will be here in 35 minutes, to prep the OR for emergent endoscopy for variceal bleed with banding. Jovita was here during the conversation, I did speak with the charge nurse and he will be notifying the surgical suite to get the OR ready for Dr. Lee to arrive. Dr. Lee states ETA of 35 minutes. Throughout this time, patient to maintain her airway, she remained alert and oriented 3, able to verbalize her understanding of the current condition, her blood pressure remained stable, her heart rate remained initially in the 150s, following the fluids as well as 3 units of PRBCs, patient's heart rate is now in the 110s. Blood work resulted which is hemoglobin 8.6, suspect this is falsely elevated given patient was given a liter of fluid, with continued active hematemesis. Further laboratory work reveals the patient to be thrombocytopenia with platelet of 58, T bili is slightly elevated. This was discussed with the on-call outside installer apprentice. Patient's family is at bedside, I have discussed with the patient as well as family the current treatment plan as well as severity of the disease and risk for continued bleeding. Patient agrees with transfusion of blood as well as states at this point in time she is a full code and once all available measures. ICU physician, Dr. Jean Baptiste is at bedside, states that he will see the patient once endoscopy has been performed. - Differential Diagnosis Likely: esophageal varices, gastritis, Benita-Fairchild syndrome, Upper gastr ointestinal hemorrhage, hematochezia, coagulopathy - Medical Records Medical records reviewed: Yes I reviewed the patient's medical records. - Lab Data Lab results reviewed: Yes I reviewed the patient's lab results. Result diagrams: 03/26/19 18:20 03/26/19 13:51 Lab Results 03/26/19 03/26/19 03/26/19 Range/Units 13:51 13:51 13:51 WBC 6.4 (4.3-11.1) K/mcL RBC 2.46 L (3.82-4.97) M/mcL Hgb 8.6 L (11.5-15.4) g/dL Hct 26.4 L (35.3-44.9) % MCV 107.3 H D (83.0-100.0) fL MCH 35.0 H (28.0-33.3) pg MCHC 32.6 (31.6-35.5) g/dL RDW 21.1 H (11.5-14.5) % Plt Count 58 L (140-400) K/mcL MPV 10.4 (9.4-12.4) fL Immature Gran % 1.7 (0-4) % Seg Neutrophils % 41.1 % Lymphocytes % 46.6 % Monocytes % 7.7 % Eosinophils % 2.0 % Basophils % 0.9 % Neutrophils # 2.6 (1.6-8.9) K/mcL Lymphocytes # 3.0 (0.6-4.6) K/mcL Monocytes # 0.5 (0.0-1.3) K/mcL Eosinophils # 0.1 (0.0-0.6) K/mcL Basophils # 0.1 (0.0-0.2) K/mcL Immature Plt Fraction 4.2 (1.1-6.1) % PT 17.9 H (9.4-12.1) Seconds INR 1.6 APTT 37.2 H (26.0-36.0) Seconds Sodium (136-145) mEq/L Potassium (3.5-5.1) mEq/L Chloride (98-107) mEq/L Carbon Dioxide (23-29) mEq/L BUN (6-20) mg/dL Creatinine (0.60-1.20) mg/dL Est GFR ( Amer) (> 60) Est GFR (Non-Af Amer) (> 60) BUN/Creatinine Ratio (6-26) Glucose (70-105) mg/dL Calculated Osmolality (280-300) Calcium (8.6-10.3) mg/dL Total Bilirubin (0.3-1.0) mg/dL AST (13-39) Units/L ALT (7-52) Units/L Alkaline Phosphatase (34-104) Units/L Ammonia (16-53) mcmol/L Serum Total Protein (6.4-8.9) g/dL Albumin (3.5-5.7) g/dL Globulin (2.4-3.5) g/dL Albumin/Globulin Ratio (1.1-2.2) Ethyl Alcohol (Less than 10) mg/dL Blood Type O NEGATIVE Antibody Screen NEGATIVE Crossmatch See Detail 03/26/19 03/26/19 Range/Units 13:51 13:51 WBC (4.3-11.1) K/mcL RBC (3.82-4.97) M/mcL Hgb (11.5-15.4) g/dL Hct (35.3-44.9) % MCV (83.0-100.0) fL MCH (28.0-33.3) pg MCHC (31.6-35.5) g/dL RDW (11.5-14.5) % Plt Count (140-400) K/mcL MPV (9.4-12.4) fL Immature Gran % (0-4) % Seg Neutrophils % % Lymphocytes % % Monocytes % % Eosinophils % % Basophils % % Neutrophils # (1.6-8.9) K/mcL Lymphocytes # (0.6-4.6) K/mcL Monocytes # (0.0-1.3) K/mcL Eosinophils # (0.0-0.6) K/mcL Basophils # (0.0-0.2) K/mcL Immature Plt Fraction (1.1-6.1) % PT (9.4-12.1) Seconds INR APTT (26.0-36.0) Seconds Sodium 138 (136-145) mEq/L Potassium 3.7 (3.5-5.1) mEq/L Chloride 102 (98-107) mEq/L Carbon Dioxide 27 (23-29) mEq/L BUN 10 (6-20) mg/dL Creatinine 0.31 L (0.60-1.20) mg/dL Est GFR ( Amer) > 60 (> 60) Est GFR (Non-Af Amer) > 60 (> 60) BUN/Creatinine Ratio 32 H (6-26) Glucose 154 H (70-105) mg/dL Calculated Osmolality 288 (280-300) Calcium 8.2 L (8.6-10.3) mg/dL Total Bilirubin 2.8 H (0.3-1.0) mg/dL AST 134 H (13-39) Units/L ALT 34 (7-52) Units/L Alkaline Phosphatase 111 H (34-104) Units/L Ammonia 135 H (16-53) mcmol/L Serum Total Protein 7.3 (6.4-8.9) g/dL Albumin 3.3 L (3.5-5.7) g/dL Globulin 4.0 H (2.4-3.5) g/dL Albumin/Globulin Ratio 0.8 L (1.1-2.2) Ethyl Alcohol 437 H (Less than 10) mg/dL Blood Type Antibody Screen Crossmatch - Radiology Data Radiology results reviewed: Yes I reviewed the patient's radiology results. Chest X-Ray 03/26/19 13:52 IMPRESSION: Minimal left basilar atelectasis or fibrosis. D/ / 03/26/2019 14:37:30 Julio Wilcox MD / [email or web address] Interpreting Provider: Julio Wilcox MD Attestation Statement - Attestation Attestation: I, Davonte Rose, examined this patient and my medical decision-making was reviewed with the VOCATIONAL HORTICULTURE INSTRUCTOR/PA/Advanced Practice Nurse/Resident Physician. I agree with the documented findings, disposition and treatment plan as described except to the extent set forth below. I reviewed the EKG with the resident and agree with the interpretation. 28-year-old female presents emergency Department with concerns of hematemesis. Patient has a history of end-stage liver disease and has extensive esophageal varices. She is required Merocel banding in the past. Patient has been seen by Dr. Campa in the past for her GI care. Patient is awake and alert however she does slur her speech and has eyes that are glazed. She answers her questions appropriately however. Patient vomited about 2-300 mL of bright red blood with EMS. She vomited another 400 mL of bright red blood in the emergency department during her stay. Patient was significantly tachycardic on initial evaluation. She is not hypotensive. She was started on trauma blood initially and then was also given fresh frozen plasma. We initially had difficulty obtaining emergent GI consult however after were able to speak with Dr. Lee, the patient was accepted to the GI service to go to the OR for additional variceal banding. Patient vital signs continued to improve with administration of fluids and blood products. She is transferred to the with tachycardia but otherwise stable vital signs. Patient was not in respiratory distress and was protecting her airway at the time of admission. Patient is intoxicated in the emergency department. Family and POA is present at bedside and who agrees with the plan of action.
[2019-03-26 14:23] LABS: Alanine Aminotransferase 34 Units/L (7-52); Albumin 3.3 g/dL (3.5-5.7); Albumin/Globulin Ratio 0.8 (1.1-2.2); Alkaline Phosphatase 111 Units/L (34-104); Aspartate Amino Transferase 134 Units/L (13-39); BUN/Creatinine Ratio 32 (6-26); Bilirubin,Total 2.8 mg/dL (0.3-1.0); Blood Urea Nitrogen 10 mg/dL (6-20); Calcium 8.2 mg/dL (8.6-10.3); Carbon Dioxide 27 mEq/L (23-29); Chloride 102 mEq/L (98-107); Ethanol 437 mg/dL (Less than 10); Glucose 154 mg/dL (70-105); Osmolality,Calculated 288 (280-300); Potassium 3.7 mEq/L (3.5-5.1); Sodium 138 mEq/L (136-145); Total Protein 7.3 g/dL (6.4-8.9); eGFR For African Americans > 60 (> 60); eGFR For Non-African Americans > 60 (> 60)
[2019-03-26 14:26] LABS: INR 1.6; Prothrombin Time 17.9 Seconds (9.4-12.1)
[2019-03-26 14:29] LABS: Activated Partial Thrombo Time 37.2 Seconds (26.0-36.0)
[2019-03-26 14:30] LABS: Platelet Count 58 K/mcL (140-400)
[2019-03-26] MEDS ORDERED: Pantoprazole 40 MG in 0.9 % Sodium Chloride Mini Bag 100 ML IVC SCH (14:30)
[2019-03-26] MEDS ORDERED: *HR* Succinylcholine 200 MG/10 ML VIAL IVP ONE (14:58)
[2019-03-26] MEDS ORDERED: Lidocaine -MPF 2% 2 ML VIAL ONE (14:58)
[2019-03-26] MEDS ORDERED: *HR* Midazolam HCl 2 MG/2 ML VIAL ONE (14:58)
[2019-03-26] MEDS ORDERED: *HR* FentaNYL (PF) 100 MCG/2 ML VIAL ONE (14:58)
[2019-03-26] MEDS ORDERED: *HR* Propofol 200 MG/20 ML VIAL IVP ONE (14:58)
--- NOTE | 2019-03-26 15:18 | Anesthesia Evaluation PreOp ---
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: Denies Any Significant HX Other Medical History: Hepatic (Cirrhosis) Anesthesia History: No Prior Anesthetic Complications : No Alcohol Use: heavy Drug use: unknown, opiates Medications and Allergies Buspirone HCl [Buspar] 10 mg PO BID 02/21/19 [History] Duloxetine HCl [Cymbalta] 60 mg PO DAILY 02/21/19 [History] Furosemide [Lasix] 40 mg PO BID 02/21/19 [History] Lactulose [Enulose] 20 gm PO TID 02/21/19 [History] Loratadine [Claritin] 10 mg PO DAILY 02/21/19 [History] Melatonin [Melatin] 6 mg PO HS 02/21/19 [History] Midodrine HCl 2.5 mg PO TID 02/21/19 [History] Omeprazole [PriLOSEC] 40 mg PO BID 02/21/19 [History] Ondansetron HCl [Zofran] 4 mg PO Q4H 02/21/19 [History] Potassium Chloride [K-Tab ER] 20 meq PO BID 02/21/19 [History] hydrOXYzine HCl [Hydroxyzine HCl] 25 mg PO Q4H 02/21/19 [History] Cefdinir [Omnicef] 300 mg PO BID #4 capsule 02/24/19 [Rx] Nadolol 20 mg PO HS 30 Days #30 tablet 02/24/19 [Rx] Allergy/AdvReac Type Severity Reaction Status Date / Time peanut Allergy Hives Verified 01/20/19 09:56 acetaminophen [From Tylenol] AdvReac See Verified 01/20/19 09:56 Comments - Meds/Allergy Pre-op Review Medications Reviewed: Yes Allergies Reviewed: Yes Beta Blockers on Current Med List: No Anesthesia Results - Labs 03/26/19 13:51 03/26/19 13:51 Anesthesia Exam Vital Signs/O2 Sat, Most Current Temp Pulse Resp BP Pulse Ox 98.2 F 114 24 121/86 99 03/26/19 13:48 03/26/19 14:43 03/26/19 13:48 03/26/19 14:43 03/26/19 14:43 Height: 5'1 Weight: 146 lbs NPO (# of Hours): MN Pain Scale: 0 - HEENT Pupil (Motor): Pupils equal, EOMI Oral Opening: Less than or equal to 3 - EXPORT FREIGHT MANAGER LOC: Confused EXPORT FREIGHT MANAGER Motor: Normal RUE, Normal LUE, Normal RLE, Normal LLE, Normal Face EXPORT FREIGHT MANAGER Sensory: Normal: RUE, LUE, RLE, LLE, Face - Cardiac Rhythm: Regular Murmur: None JVD: No Carotid Bruit: No - Pulmonary Breath Sounds: bilateral Clear Respiratory Effort: Symmetrical Anesthesia Assess/Plan ASA Score: 4, E Level of consciousness: Oriented Anesthetic Plan: General Autologous Blood: No Monitoring Plan: Standard Monitors Recovery Plan: PACU (Discussed GA, agrees to proceed) <Davonte Noyola - Last Filed: 03/26/19 15:23> Date of Encounter: 03/26/19 Anesthesia Results - Labs 03/26/19 13:51 03/26/19 13:51
--- NOTE | 2019-03-26 15:43 | Pulmonology Consult Note ---
<Pb Jimenez - Last Filed: 03/26/19 17:42> Date of Encounter: 03/26/19 Time of Encounter: 15:36 History of Present Illness Consult date: 03/26/19 Reason for consult: other (GI bleed) Chief complaint: Esophageal varices History of present illness: The patient is a 28-year-old female presenting to [facility] ED for active GI bleeding. 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 Banda. The patient has a long-standing history of alcohol abuse and states that her last drink was today. Her alcohol level here in the ED as above 400. Patient began having hematemesis just prior to arrival in the ED called 911 and was transported by EMS patient states that she is weak and dizzy but has no other concerns or complaints at this time. Patient states that she has experienced a recent fall due to her weakness onto her left wrist last night while walking home but states she did not strike her head or lose consciousness. She has no other trauma that she is reporting. The patient's blood pressure remained stable while she was in the ED, patient was noted to have vomited approximately 1 L of blood 3 peripheral IVs were placed and the patient was given Protonix, and octreotide bolus followed by a drip as well as a gram of Rocephin, trauma blood was ordered which the patient has received approximately 4 units of PRBCs to of plasma and 1 of platelets. Gastroenterology was contacted and Dr. Lee will take this patient to surgery for variceal banding. Upon my initial evaluation the emergency department the patient is awake, she is alert and oriented to her surroundings, she does appear to be slow to answering questions and with her movements likely due to inebriation, the patient states that she feels weak all over and lightheaded but has no other concerns or c omplaints at this time. She was actively vomiting blood upon my inspection with several hematemesis bags filled as well as blood on the sheets and blanket surrounding her. I was not able to perform a full physical exam prior to the patient being taken to surgery however it is noted that her abdomen does appear to be distended, her skin is pale she does not appear to be in any respiratory distress. Patient was taken emergently to the surgical suite where to esophageal variceal bands were placed without complication. Surgeon notes that in total there was approximately 1900 mL of blood between the ED in the surgical suite that the patient had vomited. He notes that the patient's stomach was also distended with blood which has not been removed. Patient will receive 8 units of PRBCs in total as well as the plasma and platelets which have been transfused prior. As there is no interventional radiology or gastroenterology weekend backup at this facility the patient will require transfer to tertiary care center for definitive care. Assessment and plan: Bleeding esophageal varices: Massive transfusion protocol was initiated with patient receiving 4 units packed red blood cells, 2 of plasma, one of platelets Patient taken emergently to operating room for variceal banding procedure. Patient on octreotide and Protonix drip after boluses. Received 1 g of ceftriaxone prior to surgery. When necessary Zofran for nausea Continue IV fluids transfusions as necessary Right femoral vein 3 lm central line placed Patient will be transferred to the care of her [facility] for further evaluation and management. Alcoholic liver cirrhosis: See above Mechanical ventilation: Continue mechanical ventilation for airway protection in the setting of variceal bleed. Past Med Surg Social Fam HX - Past Medical History Medical history: non-contributory, asthma, cirrhosis, hepatitis, other Additional medical history: crohns disease, Psychiatric history: depression - Past Surgical History Surgical History: orthopedic, other Additional surgical history: HIP EFFUSION, LEEP - Social History Smoking Status: Current every day smoker Smokeless Tobacco Status: No Alcohol use: heavy Drug use: unknown, opiates - Family History Mother Living Status: Still Living Hx Family GI Disorders: No Father Living Status: Still Living Hx Family GI Disorders: No Medications and Allergies Buspirone HCl [Buspar] 10 mg PO BID 02/21/19 [History] Duloxetine HCl [Cymbalta] 60 mg PO DAILY 02/21/19 [History] Furosemide [Lasix] 40 mg PO BID 02/21/19 [History] Lactulose [Enulose] 20 gm PO TID 02/21/19 [History] Loratadine [Claritin] 10 mg PO DAILY 02/21/19 [History] Midodrine HCl 2.5 mg PO TID 02/21/19 [History] Potassium Chloride [K-Tab ER] 20 meq PO BID 02/21/19 [History] hydrOXYzine HCl [Hydroxyzine HCl] 25 mg PO Q4H PRN 02/21/19 [History] Nadolol 20 mg PO HS 30 Days #30 tablet 02/24/19 [Rx] Allergy/AdvReac Type Severity Reaction Status Date / Time peanut Allergy Hives Verified 01/20/19 09:56 acetaminophen [From Tylenol] AdvReac See Verified 01/20/19 09:56 Comments ROS unobtainable: due to endotracheal tube All Systems: The remainder of the systems were reviewed and are negative Physical Examination Vital Signs: Vital Signs, Last 4 Hours Temp Pulse Resp BP Pulse Ox 03/26/19 15:25 113 118/72 100 03/26/19 15:10 123/62 03/26/19 15:00 126/92 03/26/19 14:43 114 121/86 99 03/26/19 14:30 123 117/76 97 03/26/19 14:25 123 110/63 97 03/26/19 14:20 117 153/98 98 03/26/19 14:14 99 03/26/19 13:48 98.2 F 153 24 111/63 91 General appearance: alert, appears uncomfortable Eyes: nonicteric ENT: oropharynx moist Effort: mildly labored Cardiovascular: regular rate and rhythm Gastrointestinal: normoactive bowel sounds, tender, other (Distended) Integumentary: other (Pale) Extremities: no cyanosis, no edema non-focal exam Results - Laboratory Findings CBC and BMP: 03/26/19 13:51 03/26/19 13:51 PT/INR, D-dimer PT 17.9 Seconds (9.4-12.1) H 03/26/19 13:51 Abnormal lab findings: Abnormal lab results RBC 2.46 M/mcL (3.82-4.97) L 03/26/19 13:51 Hgb 8.6 g/dL (11.5-15.4) L 03/26/19 13:51 Hct 26.4 % (35.3-44.9) L 03/26/19 13:51 MCV 107.3 fL (83.0-100.0) H D 03/26/19 13:51 MCH 35.0 pg (28.0-33.3) H 03/26/19 13:51 RDW 21.1 % (11.5-14.5) H 03/26/19 13:51 Plt Count 58 K/mcL (140-400) L 03/26/19 13:51 PT 17.9 Seconds (9.4-12.1) H 03/26/19 13:51 APTT 37.2 Seconds (26.0-36.0) H 03/26/19 13:51 Creatinine 0.31 mg/dL (0.60-1.20) L 03/26/19 13:51 BUN/Creatinine Ratio 32 (6-26) H 03/26/19 13:51 Glucose 154 mg/dL (70-105) H 03/26/19 13:51 Calcium 8.2 mg/dL (8.6-10.3) L 03/26/19 13:51 Total Bilirubin 2.8 mg/dL (0.3-1.0) H 03/26/19 13:51 AST 134 Units/L (13-39) H 03/26/19 13:51 Alkaline Phosphatase 111 Units/L (34-104) H 03/26/19 13:51 Ammonia 135 mcmol/L (16-53) H 03/26/19 13:51 Albumin 3.3 g/dL (3.5-5.7) L 03/26/19 13:51 Globulin 4.0 g/dL (2.4-3.5) H 03/26/19 13:51 Albumin/Globulin Ratio 0.8 (1.1-2.2) L 03/26/19 13:51 Ethyl Alcohol 437 mg/dL (Less than 10) H 03/26/19 13:51 Crossmatch See Detail 03/26/19 13:51 - Clinical Findings Intake & Output: Intake & Output 03/25/19 03/26/19 03/26/19 23:59 07:59 15:59 Intake Total 2610 / 2610 Balance 2610 / 2610 Weight 66.315 kg Pulmonary Procedures - Arterial Line Consent obtained: verbal consent (Consent received from patient's parents by attending physician) Time out performed: Yes Size (Gauge): 20 Technique used: guide wire technique Post-Procedure: line sutured into place, line taped into place, dry sterile dressing placed Patient tolerated procedure: well, no complications Complications: none Site: right, femoral Additional comments: Sterile technique was observed at all times. The right femoral vein was located by ultrasound clearly determining proper placement and identifying femoral artery location. Site was cleaned with chlorhexidine in the appropriate manner. Site was anesthetized with 1% lidocaine. procedure performed without difficulty. biopatch was placed and line was sutured in place with a [address] pressure on wound which was still oozing minimally after the procedure. After suture placement bleeding had ceased. Consult Discharge Plan - Plan Referrals: NONE,PCP [Primary Care Provider] - <Juanis Phelps - Last Filed: 03/26/19 22:26> Date of Encounter: 03/26/19 All Systems: The remainder of the systems were reviewed and are negative Physical Examination Vital Signs: Vital Signs, Last 4 Hours Pulse Resp BP Pulse Ox 03/26/19 19:00 118 16 142/96 100 03/26/19 18:45 124 15 132/94 95 Ventilator Settings Ventilator Settings: Ventilator Settings, Last 8 Hours Ventilator Tidal Volume 500 Setting Ventilator Tidal Volume 500 Setting Ventilator Tidal Volume 500 Setting Ventilator Tidal Volume 500 Setting Ventilator Tidal Volume 500 Setting Ventilator Tidal Volume 500 Setting Ventilator Tidal Volume 500 Setting Ventilator Respiratory Rate 14 Setting Ventilator Respiratory Rate 14 Setting Ventilator Respiratory Rate 14 Setting Ventilator Respiratory Rate 14 Setting Ventilator Respiratory Rate 14 Setting Ventilator Respiratory Rate 14 Setting Ventilator Respiratory Rate 14 Setting Actual Respiratory Rate 15 Actual Respiratory Rate 15 Actual Respiratory Rate 17 Actual Respiratory Rate 17 Actual Respiratory Rate 16 Actual Respiratory Rate 14 Actual Respiratory Rate 18 Positive End Expiratory 5 Pressure Positive End Expiratory 5 Pressure Positive End Expiratory 5 Pressure Positive End Expiratory 5 Pressure Positive End Expiratory 5 Pressure Positive End Expiratory 5 Pressure Positive End Expiratory 5 Pressure Peak Inspiratory Airway 38 Pressure Peak Inspiratory Airway 38 Pressure Peak Inspiratory Airway 34 Pressure Peak Inspiratory Airway 31 Pressure Peak Inspiratory Airway 31 Pressure Peak Inspiratory Airway 32 Pressure Peak Inspiratory Airway 24 Pressure Results - Laboratory Findings CBC and BMP: 03/26/19 18:20 03/26/19 13:51 PT/INR, D-dimer PT 17.9 Seconds (9.4-12.1) H 03/26/19 13:51 Abnormal lab findings: Abnormal lab results WBC 2.5 K/mcL (4.3-11.1) L D 03/26/19 18:20 RBC 2.40 M/mcL (3.82-4.97) L 03/26/19 18:20 Hgb 7.5 g/dL (11.5-15.4) L 03/26/19 18:20 Hgb 7.6 g/dL (11.5-15.4) L 03/26/19 18:20 Hct 22.9 % (35.3-44.9) L 03/26/19 18:20 Hct 23.3 % (35.3-44.9) L 03/26/19 18:20 MCV 107.3 fL (83.0-100.0) H D 03/26/19 13:51 MCH 35.0 pg (28.0-33.3) H 03/26/19 13:51 RDW 24.5 % (11.5-14.5) H 03/26/19 18:20 Plt Count 48 K/mcL (140-400) L 03/26/19 18:20 Neutrophils # 1.4 K/mcL (1.6-8.9) L 03/26/19 18:20 PT 17.9 Seconds (9.4-12.1) H 03/26/19 13:51 APTT 37.2 Seconds (26.0-36.0) H 03/26/19 13:51 Creatinine 0.31 mg/dL (0.60-1.20) L 03/26/19 13:51 BUN/Creatinine Ratio 32 (6-26) H 03/26/19 13:51 Glucose 154 mg/dL (70-105) H 03/26/19 13:51 Calcium 8.2 mg/dL (8.6-10.3) L 03/26/19 13:51 Total Bilirubin 2.8 mg/dL (0.3-1.0) H 03/26/19 13:51 AST 134 Units/L (13-39) H 03/26/19 13:51 Alkaline Phosphatase 111 Units/L (34-104) H 03/26/19 13:51 Ammonia 135 mcmol/L (16-53) H 03/26/19 13:51 Albumin 3.3 g/dL (3.5-5.7) L 03/26/19 13:51 Globulin 4.0 g/dL (2.4-3.5) H 03/26/19 13:51 Albumin/Globulin Ratio 0.8 (1.1-2.2) L 03/26/19 13:51 Ethyl Alcohol 437 mg/dL (Less than 10) H 03/26/19 13:51 Crossmatch See Detail 03/26/19 13:51 - Clinical Findings Intake & Output: Intake & Output 03/26/19 03/26/19 03/26/19 07:59 15:59 23:59 Intake Total 2610 / 2610 Output Total 550 / 550 Balance 2610 / 2060 -550 / 0 Weight 66.315 kg - Attending Attestation I saw and evaluated this patient and my medical decision-making was reviewed with the Resident Physician. I agree with the documented findings, disposition and treatment plan as described except to the extent set forth below. We indep endently had [id number] contact with the patient I spent 75 minutes of Critical Care time with this patient. It involved decision making of high complexity to assess, manipulate, and support vital organ system failure and/or to prevent further life threatening deterioration of the patient's condition. The time involved in the performance of separately reportable procedures was not counted toward critical care time. Patient seen and examined at bedside Labs, radiology, chart personally reviewed. Management was reviewed during multidisciplinary critical care rounds. NURSERY HAND: Patient before intubation was confused but was alert following commands most likely due to hepatic encephalopathy. Pulm: Patient has acceptable oxygenation and ventilation. Cards: Patient is hemodynamically stable had profound GI blood loss last around almost 1.9 L of blood patient did not develop any hemodynamic instability. FEN-GI: Patient has end-stage liver disease cirrhosis with the esophageal varices patient had previous bleeding in the past patient developed massive hematemesis gastroenterology performed endoscopy did banding of his esophageal varices patient has high risk for recurrent bleed in that case patient need r epeat endoscopy. Advance interventional endoscopy procedure or interventional radiology procedure. Patient was started on PPIs and somastatin. There is no weekend gastroenterology coverage for specialized procedure like a repeat banding according to the supervisor assembly stock patient has a high risk for rebleed and also that is no in house interventional radiologist for an emergent TIPS. After discussing with the whole ICU team and family and interface or patient safety and best interest patient was transferred to tertiary care center at the [facility] in [place] Renal: Labs and output were reviewed ID: To cover with broad-spectrum antibiotics for prophylaxis of spontaneous bacterial peritonitis Heme/Onc: Patient has acute blood loss anemia with massive transfusion to correct coagulopathy. Endo: Glucose Monitored Integ/MSK: Skin Care per routine ICU Nursing Protocol to prevent ulcers. Lines: All lines examined without evidence of infection : Dispo: critically ill CODE:full code
[2019-03-26] MEDS ORDERED: Naloxone 0.4 MG/ML INJ IVP PRN (16:08)
[2019-03-26] MEDS ORDERED: 0.9 % Sodium Chloride 1,000 ML IVC SCH (16:15)
[2019-03-26] MEDS ORDERED: Propofol 500 MG/50 ML INFUS..BTL ONE (16:26)
[2019-03-26] MEDS ORDERED: *HR* Midazolam HCl 5 MG/5 ML VIAL IVP ONE ×2 (17:29→17:30)
--- NOTE | 2019-03-26 17:50 | Internal Med History&Physical ---
Date of Encounter: 03/26/19 Time of Encounter: 17:00 Internal Medicine - H&P: HPI Chief complaint: GI bleed Admitted From: Emergency Dept Plans for Post Hospital Care: Transfer Other History of present illness: Ms. Coronado is a 28 year old female who presented to ER today with acute onset of upper GI bleed. She was noted to have gross hematemesis in the ER. She was intubated for airway protection, fluid and blood product resuscitated. GI was consulted for EGD and likely variceal banding. Her bleeding was stabilized with banding of her varices per Dr. Lee. She was then moved to the ICU for further stabilization and care. I discussed the case at length with Dr. Lee, Dr. Phelps, and ICU nursing staff. Unfortunately, we do not have any GI coverage this weekend starting tonight. My concern is that she is a high risk of rebleeding and could develop further need for hemodynamic support that would be beyond our capability. Dr. Lee and Dr. Phelps agree that we should transfer to a tertiary care facility where GI services and IR services could be readily available if and when she needs them for further interventional support. I spoke with her parents/family, and they agree with transfer. I initially called [facility] for transfer request as this was transfer request was made earlier in the ER. Unfortunately, [facility] has no ICU beds available at this time. I therefore contacted [facility] requesting ICU bed and transfer. Currently, I am awaiting a call back for regarding a possible transfer pending their ICU status. If there are no ICU beds and/or availability, we will call other tertiary care facilities requesting transfer. No history can be obtained from patient as she is intubated and sedated presently. I obtained history from her parents who confirm her alcoholism and cirrhosis. She has had recurrent bouts of GI bleeding in the past. As per her family, she is full code at this time. Past Med Surg Social Fam HX - Past Medical History Source: old records reviewed, obtained from family, other (ER notes and discu ssion) Medical history: non-contributory, asthma, cirrhosis Additional medical history: crohns disease, Psychiatric history: depression - Past Surgical History Surgical History: orthopedic, other Additional surgical history: HIP EFFUSION, LEEP - Social History Smoking Status: Current every day smoker Smokeless Tobacco Status: No Alcohol use: heavy Drug use: unknown, opiates Current living situation: Home, With Family Activity Level: Independent ambulation - Family History Mother Living Status: Still Living Hx Family GI Disorders: No Father Living Status: Still Living Hx Family GI Disorders: No Internal Medicine - H&P: Meds Buspirone HCl [Buspar] 10 mg PO BID 02/21/19 [History] Duloxetine HCl [Cymbalta] 60 mg PO DAILY 02/21/19 [History] Furosemide [Lasix] 40 mg PO BID 02/21/19 [History] Lactulose [Enulose] 20 gm PO TID 02/21/19 [History] Loratadine [Claritin] 10 mg PO DAILY 02/21/19 [History] Midodrine HCl 2.5 mg PO TID 02/21/19 [History] Potassium Chloride [K-Tab ER] 20 meq PO BID 02/21/19 [History] hydrOXYzine HCl [Hydroxyzine HCl] 25 mg PO Q4H PRN 02/21/19 [History] Nadolol 20 mg PO HS 30 Days #30 tablet 02/24/19 [Rx] Allergy/AdvReac Type Severity Reaction Status Date / Time peanut Allergy Hives Verified 01/20/19 09:56 acetaminophen [From Tylenol] AdvReac See Verified 01/20/19 09:56 Comments ROS unobtainable: due to endotracheal tube - Constitutional Vitals: Temp Pulse Resp BP Pulse Ox 98.2 F 132 16 143/100 99 03/26/19 13:48 03/26/19 17:30 03/26/19 17:30 03/26/19 17:30 03/26/19 17:30 Exam: intubated, sedated; generalized edema - Head Head exam: Present: atraumatic, normal inspection - Eye Eye exam: Present: scleral icterus - ENT ENT exam: Present: mucous membranes dry Additional comments: ETT in place - Neck Neck exam general surgery: Present: full ROM, supple, trachea midline. Absent: lymphadenopathy, tenderness, nuchal rigidity, thyromegaly - Respiratory Respiratory exam: Present: prolonged expiratory phase, rhonchi, wheezes. Absent: chest wall tenderness, rales, respiratory distress - Cardiovascular Cardiovascular exam: Present: RRR, +S1, +S2, systolic murmur, tachycardia. Absent: diastolic murmur - GI/Abdominal GI/Abdominal exam: Present: distended, hypoactive bowel sounds. Absent: guarding, hepatomegaly, rebound, tenderness Additional comments: + shifting dullness to percussion - Extremities Exam Extremities exam: Present: full ROM, pedal edema (3+ ), warm, radial pulses palpable and symmetrical. Absent: calf tenderness, tenderness Additional comments: petechiae on legs - Back Exam Back exam: Absent: CVA tenderness (L), CVA tenderness (R) - Neurological Exam Additional comments: sedated, moves all four extremities purposely, responds to verbal and painful stimuli - Psychiatric Additional comments: unable to assess - Skin Skin exam: Present: dry, intact, petechiae, warm Internal Med - H&P Results - Labs CBC & Chem 7: 03/26/19 13:51 03/26/19 13:51 Labs: Short CBC 03/26/19 Range/Units 13:51 WBC 6.4 (4.3-11.1) K/mcL Hgb 8.6 L (11.5-15.4) g/dL Hct 26.4 L (35.3-44.9) % Plt Count 58 L (140-400) K/mcL Neutrophils # 2.6 (1.6-8.9) K/mcL BMP 03/26/19 13:51 Sodium 138 Potassium 3.7 Chloride 102 Carbon Dioxide 27 BUN 10 Creatinine 0.31 L Glucose 154 H Calcium 8.2 L Liver Function 03/26/19 Range/Units 13:51 Total Bilirubin 2.8 H (0.3-1.0) mg/dL AST 134 H (13-39) Units/L ALT 34 (7-52) Units/L Alkaline Phosphatase 111 H (34-104) Units/L Albumin 3.3 L (3.5-5.7) g/dL - Impressions ITS Impressions Chest X-Ray 03/26/19 13:52 IMPRESSION: Minimal left basilar atelectasis or fibrosis. D/ / 03/26/2019 14:37:30 Julio Wilcox MD / [email or web address] Interpreting Provider: Julio Wilcox MD - Assessment and Plan (1) Acute blood loss anemia Current Visit: Yes Status: Acute Assessment and plan: 1. S/P fluid and blood product resuscitation in ER. 2. S/P EGD with variceal banding. 3. Right Femoral CVC placed per DR. Jimenez and Dr. Phelps. 4. Ongoing hemodynamic and blood product support. 5. Transfer request made for tertiary care referral to [facility] due to lack of GI and IR coverage this weekend. At 18:30, we received phone confirmation form [place] that Dr. Bal has accepted patient to the SICU at [place]. Transport arrangements are being coordinated presently. (2) Alcoholism Current Visit: Yes Status: Acute Assessment and plan: 1. Patient at high risk of alcohol withdrawal. 2. Sedated with Propofol and Versed. 3. Monitor for withdrawal. 4. MVI/thiamine/Folate ordered. (3) Esophageal varices Current Visit: Yes Status: Acute Assessment and plan: 1. Esophageal banding per GI -- stabilized for now. 2. Transfer to tertiary care facility due to lack of GI coverage this weekend. 3. Ongoing hemodynamic and blood product support in ICU. Qualifiers: Esophageal varices type: unspecified type Esophageal varices bleeding: with bleeding Qualified Code(s): I85.01 - Esophageal varices with bleeding (4) DVT prophylaxis Current Visit: Yes Status: Acute Assessment and plan: 1. EPCD's. - Time Spent With Patient Greater than 35 minutes
[2019-03-26] MEDS ORDERED: Cyanocobalamin (B-12) 1,000 MCG/ML VIAL IM ONE (17:57)
[2019-03-26] MEDS ORDERED: Folic Acid 1 MG in 0.9 % Sodium Chloride 50 ML IVPB ONE (17:57)
[2019-03-26] MEDS ORDERED: Thiamine (B-1) 100 MG in 0.9 % Sodium Chloride 50 ML IVPB SCH (17:58)
[2019-03-26] MEDS ORDERED: Pyridoxine (B-6) 100 MG/ML VIAL IVP SCH (18:00)
[2019-03-26] MEDS ORDERED: Folic Acid 1 MG, Thiamine (B-1) 100 MG in 0.9 % Sodium Chloride 50 ML IVPB ONE (18:15)
[2019-03-26 18:38] LABS: Hematocrit 23.3 % (35.3-44.9); Hemoglobin 7.6 g/dL (11.5-15.4)
[2019-03-26 18:41] LABS: Basophils % 0.8 %; Eosinophils % 1.6 %; Hematocrit 22.9 % (35.3-44.9); Hemoglobin 7.5 g/dL (11.5-15.4); Immature Granulocytes % 3.6 % (0-4); Immature Platelets 3.7 % (1.1-6.1); Lymphocytes # 0.7 K/mcL (0.6-4.6); Lymphocytes % 28.9 %; Mean Corpuscular HGB Conc 32.8 g/dL (31.6-35.5); Mean Corpuscular Hemoglobin 31.3 pg (28.0-33.3); Mean Corpuscular Volume 95.4 fL (83.0-100.0); Mean Platelet Volume 10.1 fL (9.4-12.4); Monocytes # 0.3 K/mcL (0.0-1.3); Monocytes % 10.7 %; Neutrophils # 1.4 K/mcL (1.6-8.9); Red Cell Distribution Width 24.5 % (11.5-14.5); Segmented Neutrophils % 54.4 %; White Blood Count 2.5 K/mcL (4.3-11.1)
[2019-03-26 18:45] LABS: Platelet Count 48 K/mcL (140-400)
[2019-03-26 19:03] VITALS: BP 142/96
--- NOTE | 2019-03-26 22:17 | Procedure Note ---
Date of procedure: 03/26/19 Pre-op diagnosis: GI bleed Post-op diagnosis: same Procedure: Central Venous Catheter (CVC, Central Line) Placement Date: 03/26/2019 Time: 17:00 Indication: Hemodynamic monitoring/Intravenous access Resident: Attending: A time-out was completed verifying correct patient, procedure, site, positioning, and special equipment if applicable. The patient was placed in a dependent position appropriate for central line placement based on the vein to be cannulated. The patients right groin was prepped and draped in sterile fashion. 1% Lidocaine was used to anesthetize the surrounding skin area. A triple lumen 9-German Cordis catheter was introduced into the the Right common femoral vein using the Seldinger technique and under ultrasound guidance. The catheter was threaded smoothly over the guide wire and appropriate blood return was obtained. Each lumen of the catheter was evacuated of air and flushed with sterile saline. The catheter was then sutured in place to the skin and a sterile dressing applied. Perfusion to the extremity distal to the point of catheter insertion was checked and found to be adequate. was present for the entire procedure. Estimated Blood Loss: minimal The patient tolerated the procedure well and there were no complications. Was there an assistant manager retail present: Yes [employer] Supervisor: Pb Jimenez Estimated blood loss (cc): 2 Specimen: none sent Pathology: none sent Condition: critical Disposition: ICU
--- NOTE | 2019-03-29 12:25 | Electrocardiograph Report ---
[address] [place], [place] [address] Test Date: 2019-03-26 Pat Name: Leidy Coronado Department: [id number] Room: [facility] Gender: F Repairer Pump: : 1990 Requested By: Marianna Beltrán Order Number: [id number] Reading MD: Evan Chapman Measurements Intervals [place] Rate: 104 P: 46 [place]: 135 QRS: 58 QRSD: 84 T: 40 QT: 374 QTc: 492 Interpretive Statements Sinus tachycardia Borderline prolonged QT interval Electronically Signed On 03-29-2019 12:24:10 EDT by Evan Chapman
--- NOTE | 2019-03-29 15:55 | Gastroenterology Consult Note ---
Date of Encounter: 03/26/19 Time of Encounter: 14:30 - Assessment and plan (1) Esophageal varices Status: Acute Assessment and plan: Patient with active hematemesis. Dr. Lee to complete EGD with banding. Recommend PPI drip and octreotide drip. Transfuse PRBC, FFP, and platelets. Qualifiers: Esophageal varices type: unspecified type Esophageal varices bleeding: with bleeding Qualified Code(s): I85.01 - Esophageal varices with bleeding (2) Cirrhosis Status: Acute Qualifiers: Hepatic cirrhosis type: alcoholic cirrhosis Ascites presence: unspecified Qualified Code(s): K70.30 - Alcoholic cirrhosis of liver without ascites (3) Hematemesis Status: Acute Assessment and plan: Likely due to variceal bleed. Qualifiers: Nausea presence: unspecified Qualified Code(s): K92.0 - Hematemesis - Time Spent With Patient Total time spent is greater than 50% in coordination of care (as documented) at patient's floor/unit and/or counseling patient: GI History of Present Illness - Data of Consult Patient: known to practice within the last 3 years Consult date: 03/26/19 Requesting Physician: Juanis Phelps MD - Consult Narrative Reason for consult: Hematemesis History of present illness: Ms. Coronado is a 28 year old female with PMHx of alcoholic cirrhosis, varices who presented with active GI bleed. She was drinking the day of admission and had hematemesis. She had active hematemesis of approximetely 1200 ml in the ED. She was started on IV Protonix and Octreotide. We were consulted to evaluate variceal bleed. She denies fever, chills, chest pain, shortness of breath, abdominal pain, hematochezia. She continues to drink alcohol heavily. Hgb 8.6 on admission with INR 1.6. Procedures: EGD 02/20/2019 Dr. Banda: Grade 2 esophageal varices incompletely eradicated, banded, red blood in gastric body, blood in the duodenal bulb. EGD 04/2018 [place]: Esophageal varices banded. NASIDs: None Anticoagulation: None Past Med Surg Social Fam HX - Past Medical History Medical history: non-contributory, asthma, cirrhosis Additional medical history: crohns disease, Psychiatric history: depression - Past Surgical History Surgical History: orthopedic, other Additional surgical history: HIP EFFUSION, LEEP - Social History Smoking Status: Current every day smoker Smokeless Tobacco Status: No Alcohol use: heavy Drug use: unknown, opiates - Family History Mother Living Status: Still Living Hx Family GI Disorders: No Father Living Status: Still Living Hx Family GI Disorders: No - Gastrointestinal Gastrointestinal: Present: as per HPI - Constitutional Constitutional: as per HPI - EENT Eyes: as per HPI Ears: Present: as per HPI Nose, mouth and throat: Present: as per HPI - Cardiovascular Cardiovascular ROS: Present: as per HPI - Respiratory Respiratory IM: Present: as per HPI - Genitourinary Genitourinary: Absent: change in color, Urinary frequency - Neurological ROS Neurological GI: Present: as per HPI - Hematologic/Lymphatic Hematologic/Lymphatic pediatric: Present: as per HPI - Musculoskeletal Musculoskeletal ROS GI: Present: as per HPI - Integumentary Integumentary GI: Present: as per HPI - Psychiatric ROS Psychiatric GI: Present: as per HPI - Endocrine Endocrine IM: Present: as per HPI - Constitutional Vitals: Temp Pulse Resp BP Pulse Ox 96.4 F L 118 16 142/96 100 03/26/19 17:00 03/26/19 19:00 03/26/19 19:00 03/26/19 19:00 03/26/19 19:00 General appearance: Present: cooperative, A&O X 3, no acute distress, answers qu estions appropriately - Head Head exam: Present: normocephalic - Eye Eye exam: Present: normal appearance, sclera anicteric - Neck Neck exam general surgery: Present: normal inspection, trachea midline - Cardiovascular Cardiovascular exam: Present: tachycardia - GI/Abdominal GI/Abdominal exam: Present: distended. Absent: tenderness - Rectal Rectal exam: Present: deferred - Extremities Exam Extremities exam: Present: warm - Neurological Exam Neurological exam: Present: no focal deficits - Psychiatric Psychiatric exam: Present: normal affect, normal mood - Skin Skin exam: Present: dry, pallor Results - Labs CBC & Chem 7: 03/26/19 18:20 03/26/19 13:51 - ABG ABG results: PT/INR, D-dimer PT 17.9 Seconds (9.4-12.1) H 03/26/19 13:51 Consult Discharge Plan - Plan Referrals: NONE,PCP [Primary Care Provider] -
== END 2019-03-26 19:55 | disposition short-term general hospital (02) ==
LOC: ICNU 13:44 → EMEROOARM 13:44 → ICNU 15:40
PROVIDERS: ADMIT Internal Medicine Pulmonary Disease; ATTEND Internal Medicine Pulmonary Disease

== ENCOUNTER 2019-05-02 10:42 | Inpatient (IN) ==
[2019-05-02] MEDS ORDERED: Pantoprazole 40 MG VIAL IVP ONE (10:46)
[2019-05-02] MEDS ORDERED: Octreotide 50 MCG/ML INJ IVP ONE (10:46)
[2019-05-02] MEDS ORDERED: cefTRIAXone 1,000 MG in Water for inj. (sterile) 10 ML IVP ONE (10:50)
[2019-05-02 11:24] LABS: Basophils % 0.6 %; Eosinophils # 0.2 K/mcL (0.0-0.6); Eosinophils % 3.5 %; Hemoglobin 6.8 g/dL (11.5-15.4); White Blood Count 5.2 K/mcL (4.3-11.1)
[2019-05-02 11:26] LABS: Hematocrit 21.3 % (35.3-44.9); Immature Granulocytes % 1.9 % (0-4); Immature Platelets 3.1 % (1.1-6.1); Lymphocytes % 33.7 %; Mean Corpuscular HGB Conc 31.9 g/dL (31.6-35.5); Mean Corpuscular Volume 106.5 fL (83.0-100.0); Mean Platelet Volume 10.3 fL (9.4-12.4); Monocytes # 0.3 K/mcL (0.0-1.3); Monocytes % 6.2 %; Neutrophils # 2.8 K/mcL (1.6-8.9); Red Cell Distribution Width 19.6 % (11.5-14.5); Segmented Neutrophils % 54.1 %
[2019-05-02 11:28] LABS: Lymphocytes # 1.8 K/mcL (0.6-4.6); Platelet Count 52 K/mcL (140-400)
[2019-05-02 11:38] LABS: INR 1.7; Prothrombin Time 19.5 Seconds (9.4-12.1)
[2019-05-02 11:40] LABS: Activated Partial Thrombo Time 37.8 Seconds (26.0-36.0)
[2019-05-02 11:43] LABS: Alanine Aminotransferase 26 Units/L (7-52); Albumin 3.3 g/dL (3.5-5.7); Albumin/Globulin Ratio 0.8 (1.1-2.2); Alkaline Phosphatase 106 Units/L (34-104); Aspartate Amino Transferase 103 Units/L (13-39); BUN/Creatinine Ratio 23 (6-26); Bilirubin,Total 2.1 mg/dL (0.3-1.0); Blood Urea Nitrogen 7 mg/dL (6-20); Calcium 7.9 mg/dL (8.6-10.3); Carbon Dioxide 22 mEq/L (23-29); Chloride 104 mEq/L (98-107); Glucose 134 mg/dL (70-105); Osmolality,Calculated 284 (280-300); Potassium 3.4 mEq/L (3.5-5.1); Sodium 137 mEq/L (136-145); Total Protein 7.3 g/dL (6.4-8.9); eGFR For African Americans > 60 (> 60); eGFR For Non-African Americans > 60 (> 60)
[2019-05-02] MEDS ORDERED: 0.9 % Sodium Chloride 500 ML ONE ×2 (12:24→14:15)
[2019-05-02] MEDS ORDERED: Naloxone 0.4 MG/ML INJ IVP PRN (13:16)
[2019-05-02] MEDS ORDERED: *HR* LORazepam 2 MG/ML VIAL IVP PRN (13:22)
[2019-05-02] MEDS ORDERED: *HR* Promethazine 25 MG/ML VIAL IVP PRN (13:22)
[2019-05-02] MEDS ORDERED: Pantoprazole 40 MG in 0.9 % Sodium Chloride Mini Bag 100 ML IVC SCH (13:30)
[2019-05-02] MEDS: Octreotide 400 MCG in 0.9 % Sodium Chloride 100 ML IVC SCH ×2 (13:57→17:17)
[2019-05-02] MEDS ORDERED: *HR* FentaNYL (PF) 100 MCG/2 ML VIAL ONE (15:07)
[2019-05-02] MEDS ORDERED: *HR* Midazolam HCl 2 MG/2 ML VIAL ONE (15:07)
[2019-05-02] MEDS ORDERED: Artificial Tears SOLN 15 ML BOTTLE BOTH EYES PRN (15:09)
[2019-05-02] MEDS ORDERED: FentaNYL (PF) 1,000 MCG in 0.9 % Sodium Chloride 80 ML IVC SCH (15:15)
[2019-05-02] MEDS ORDERED: Cisatracurium 200 MG in 0.9 % Sodium Chloride 180 ML IVC SCH (15:30)
[2019-05-02] MEDS ORDERED: Artificial Tears SOLN 15 ML BOTTLE BOTH EYES SCH (16:00)
[2019-05-02 16:31] LABS: ABG Base Excess 1 mEq/L (-2 to 3); ABG HCO3 24 mEq/L (21-27); ABG Oxygen Saturation 100 % (95-98); ABG PCO2 32 mmHg (35-45); ABG PH 7.49 pH Units (7.32-7.45); ABG PO2 347 mmHg (85-104); ABG TCO2 25 mEq/L (20-26); Blood Gas Modality ASSIST CONTROL; Blood Gas VT 450 cc
[2019-05-02] MEDS: *HR* Midazolam HCl 2 MG/2 ML VIAL IVP ONE ×2 (16:45→16:47)
[2019-05-02] MEDS: *HR* FentaNYL (PF) 100 MCG/2 ML VIAL IVP ONE (16:46)
[2019-05-02] MEDS ORDERED: 0.9 % Sodium Chloride 1,000 ML ONE ×2 (16:50→18:03)
[2019-05-02] MEDS ORDERED: Piperacillin/Tazobactam 3.375 GM in 0.9 % Sodium Chloride Mini Bag 100 ML IVPB SCH (17:30)
[2019-05-02 17:57] VITALS: BP 140/77
[2019-05-02] MEDS ORDERED: Calcium Gluconate 1gm/50mL 1 GM/50 ML BAG IVPB SCH (18:00)
[2019-05-02] MEDS ORDERED: Thiamine (B-1) 100 MG, Folic Acid 1 MG, MVI, adult with vitamin K 10 ML in 0.9 % Sodi... IVPB SCH (18:00)
[2019-05-02] MEDS ORDERED: SODIUM TETRADECYL SULFATE IR ONE (18:31)
[2019-05-02] MEDS ORDERED: *HR* Midazolam HCl 5 MG/5 ML VIAL IVP ONE (18:49)
[2019-05-02] MEDS ORDERED: *HR* Succinylcholine 200 MG/10 ML VIAL IVP ONE (18:49)
[2019-05-02] MEDS ORDERED: *HR* Midazolam HCl 2 MG/2 ML VIAL IV ONE (18:49)
[2019-05-02] MEDS ORDERED: *HR* LORazepam 2 MG/ML VIAL IVP ONE (18:49)
[2019-05-02] MEDS ORDERED: *HR* Etomidate 20 MG/10 ML AMPUL IVP ONE (18:49)
[2019-05-02] MEDS ORDERED: Chlorhexidine Rinse 15 ML MOUTHWASH MM SCH (21:00)
== END 2019-05-02 18:50 | disposition short-term general hospital (02) | DRG 368 ==
LOC: EMEROOARM 10:42 → ICNU 13:04
PROVIDERS: ADMIT Pediatrics; ATTEND Pediatrics